=== PATIENT | female | born 1945 | race Caucasian/White ===

== ENCOUNTER 2017-11-27 15:16 | Outpatient (CLI) | payer MEDICARE, OTHER | END 2017-11-27 15:17 | disposition home or self-care (01) | LOC: BICRAD 15:16 | PROVIDERS: ATTEND Specialist | DX: R05 Cough (principal) | CPT/HCPCS: 71046 ==

== ENCOUNTER 2018-09-10 17:05 | Inpatient (IN) | payer MEDICARE, OTHER ==
[~2018-09-10 17:05] MED LIST: ISOVUE-370 76%-LOCM 1 ML ONE
[2018-09-10 18:02] LABS: #Basophils 0.1 thou/uL (0.0-0.2); #Eosinphils 0.2 thou/uL (0.0-0.7); #Lymphocytes 1.3 thou/uL (1.20-3.40); #Monocytes 0.6 thou/uL (0.11-0.59); #Neutrophils 4.7 thou/uL (1.40-6.50); %Basophils 0.7 % (0.0-1.0); %Eosinophils 3.2 % (0.0-10.0); %Lymphocytes 19.4 % (21.0-51.0); %Monocytes 8.3 % (0.0-10.0); %Neutrophils 68.4 % (42.0-75.0); Hemoglobin 14.8 g/dL (12.0-16.0); Mean Corpuscular Hemoglobin 33.4 pg (27.0-31.0); Mean Platelet Volume 9.3 fL (7.4-10.4); Platelet Count 209 thou/uL (130-400); RBC Distribution Width 13.9 % (11.5-14.5); Red Blood Cell (RBC) Count 4.44 mill/uL (4.20-5.40); White Blood Cell (WBC) Count 6.9 thou/uL (4.8-10.8)
[2018-09-10 18:23] LABS: Glucose 103 mg/dL (83-110)
[2018-09-10 18:24] LABS: ALT (SGPT) 8 U/L (8-55); AST (SGOT) 17 U/L (5-34); Albumin 3.5 g/dL (3.4-4.8); Alkaline Phosphatase 109 U/L (40-150); Anion Gap 13 mmol/L (10-20); BUN (Urea Nitrogen) 8 mg/dL (9.8-20.1); Bilirubin, Total 0.9 mg/dL (0.2-1.2); Calc. Creatinine Clearance 0 mL/min (70-130); Calcium 9.7 mg/dL (7.8-10.44); Carbon Dioxide 21 mmol/L (23-31); Chloride 105 mmol/L (98-107); Estimated GFR-MDRD 68; Globulin 4.4 g/dL (2.4-3.5); Potassium 4.3 mmol/L (3.5-5.1); Protein, Total 7.9 g/dL (6.0-8.3); Sodium 135 mmol/L (136-145)
[2018-09-10 18:45] LABS: INR-International Normal Ratio 1.2; PTT 40.1 SEC (22.9-36.1); Prothrombin Time 15.3 SEC (12.0-14.7)
[2018-09-10 19:11] LABS: Bilirubin Small (Negative); Blood, Urine Negative (Negative); Clarity CLEAR (Clear); Glucose, Urine (Dipstick) Negative (Negative); Leukocyte Small (Negative); Nitrite Negative (Negative); Protein, Urine (Dipstick) Negative (Neg-Trace); pH, Urine 6.5 (5.0-9.0)
[2018-09-10 19:12] LABS: Bacteria/HPF None Seen HPF (None Seen); Hyaline Casts/LPF 0-3 HYALINE CAST LPF (0-3 Hyaline); Pathc Cast-AUWi Flag 0.14 (0-2.49)
[2018-09-10 19:20] LABS: RBC/HPF 0-3 HPF (0-3)
[2018-09-10 19:46] LABS: Albumin 3.3 g/dL (3.4-4.8)
[2018-09-10 19:49] LABS: Protein, Total 7.3 g/dL (6.0-8.3)
[2018-09-10 19:50] LABS: Bilirubin, Total 0.9 mg/dL (0.2-1.2)
[2018-09-10 19:51] LABS: Alkaline Phosphatase 103 U/L (40-150)
--- NOTE | 2018-09-10 19:51 | RAD ---
PORTABLE UPRIGHT FRONTAL CHEST RADIOGRAPH: Date: 09-10-18 Comparison: 11-27-17 History: Swelling. FINDINGS: There is stable atherosclerotic calcification of the aortic arch. No pneumothorax or pleural fluid is seen and there is no focal consolidation or alveolar edema. IMPRESSION: No acute findings. POS: [facility]
[2018-09-10 19:53] LABS: AST (SGOT) 15 U/L (5-34)
[2018-09-10 19:54] LABS: ALT (SGPT) Less than 7 U/L (8-55); Bilirubin, Direct 0.5 mg/dL (0.1-0.3)
--- NOTE | 2018-09-10 20:42 | CT ---
CT OF ABDOMEN AND PELVIS 09/10/18 COMPARISON: None. HISTORY: Abdominal distention with pain, nausea, and vomiting. TECHNIQUE: Axial CT imaging at 5 mm intervals from lung bases through pubic symphysis with IV contrast. Coronal reformatted imaging obtained. FINDINGS: The imaged lung bases appear unremarkable. No free intraperitoneal air. There is prominent ascites throughout the abdomen/pelvis, most prominent within the lower pelvis. The hepatic parenchyma is heterogeneous with a peripheral irregular contour, evidence of cirrhosis. The spleen is enlarged measuring 15.8 cm in craniocaudal dimension. There are small varices in the paraesophageal region as well as in the gastrohepatic ligament region and the region of the splenic hilum. There are gallstones seen in the expected location of the gallbl adder neck. There is a subtle low density lesion within the midline pancreatic body on image 34 measuring approxi mately 1.4 cm in transverse dimension, too small to characterize. Right adrenal gland appears unremarkable. Two nonspecific adrenal nodules are present on the left, la rger measuring 1.4 cm. Linear vascular calcification noted in right renal hilum. Similar findings seen within left renal hil um. No acute renal abnormality. Limited assessment of the bowel demonstrates wall thickening of the cecum and ascending colon which c ould be on the basis of hepatic congestion or less likely colitis. A probable lipoma noted in the reg ion of the duodenum on image 49 measuring 2.6 cm. There is scattered atherosclerotic calcification of the abdominal aorta and its branches. No pelvic lymphadenopathy. Multiple mildly enlarged retroperitoneal nodes are seen in the left periao rtic region. Review of the osseous structures demonstrates multilevel lower lumbar spine degenerative change with vacuum disc formation, disc space narrowing and osteophytosis. IMPRESSION: 1. Cirrhotic configuration of the liver with splenomegaly, ascites, and upper abdominal varices, evidence of portal hypertension. 2. Low density lesion in the pancreatic body which may represent a cystic lesion, a pancreatic n eoplasm or an abnormality associated with the pancreatic duct. 3. Adrenal nodules on the left, incompletely assessed on this exam. 4. Atherosclerotic disease. 5. Perhaps an abdominal MRI with and without contrast would be beneficial to evaluate the liver, the pancreatic lesion, and the left adrenal nodules. Alternatively, short term followup imaging of t he abdomen with and contrast using a hepatic mass protocol is advised in 3-6 months. 6. Wall thickening of ascending colon and cecum as detailed above. 7. Cholelithiasis. Code T POS: [facility]
[2018-09-11] MEDS ORDERED: Ondansetron ODT 4 MG TAB SL PRN (00:05)
[2018-09-11] MEDS ORDERED: Ondansetron PF 4 MG/2 ML Vial IVP PRN (00:05)
[2018-09-11] MEDS ORDERED: Ondansetron PF 4 MG/2 ML Vial SLOW IVP PRN (08:15)
[2018-09-11] MEDS ORDERED: Lorazepam 2 MG/ML VIAL SLOW IVP PRN (08:24)
[2018-09-11] MEDS: Sodium Chloride 0.45% 1,000 ML IV SCH ×2 (08:30→16:36)
[2018-09-11] MEDS ORDERED: Prevnar 13-Val Conj/PF 0.5 ML SYRINGE IM ONE (09:00)
[2018-09-11] MEDS: SODIUM CHLORIDE IV SCH ×2 (09:18→16:37)
[2018-09-11] MEDS: MULTIVITAMINS IV SCH ×2 (09:18→16:37)
[2018-09-11] MEDS: Multivit, Therapeutic 1 TAB PO SCH (09:19)
[2018-09-11] MEDS: Pantoprazole 40 MG VIAL IVP SCH ×2 (09:19→20:32)
[2018-09-11] MEDS: Folic Acid 1 MG TAB PO SCH (09:19)
[2018-09-11] MEDS: Thiamine HCl 200 MG/2 ML VIAL IM SCH (10:42)
[2018-09-11] MEDS ORDERED: Sodium Bicarbonate 2.5 MEQ/5 ML VIAL ONE (11:12)
[2018-09-11] MEDS: Lorazepam 2 MG/ML VIAL SLOW IVP SCH ×2 (12:32→17:28)
[2018-09-11 13:54] LABS: BF Color Yellow; Body Fluid Source Ascites Body Fluid; Clarity Hazy (Clear); Tube # EDTA; WBC/NonHematic-Auto 692 /cumm
[2018-09-11 13:55] LABS: BF RBC Count - Manual 539 /cumm
[2018-09-11 14:22] LABS: BF Segmented Neutrophils 28 %; Cell Count Non Hematic 55 %; Eosinophils 1 %; Lymphocytes 15 %
--- NOTE | 2018-09-11 14:54 | ULT ---
ULTRASOUND GUIDED PARACENTESIS: INDICATIONS: Symptomatic ascites. TECHNIQUE: A pre-procedure ultrasound was performed. Informed consent was obtained. The site overlying the rig ht lower quadrant was marked. The site was prepped and draped in the usual sterile fashion. Buffere d 1% Lidocaine was administered to the overlying subcutaneous tissues. Under ultrasound guidance, a 5 [employer] catheter was guided down into the largest collection in the right lower quadrant. Ther e was removal of 5400 mL of normal appearing peritoneal fluid. The patient tolerated the procedure w ithout difficulty. Portions of the sampled fluid were sent to pathology for analysis. IMPRESSION: Successful ultrasound guided paracentesis with removal of 5400 mL of normal appearing peritoneal flui d. POS: [facility]
[2018-09-11] MEDS ORDERED: Levothyroxine 175 MCG TAB PO SCH (16:45)
--- NOTE | 2018-09-11 16:48 | HP ---
CHIEF COMPLAINT ON OBSERVATION: New-onset ascites with GI bleed and pancreatic lesion. HISTORY OF PRESENT ILLNESS: The patient is a 73-year-old female, who has had increasing abdominal girth and discomfort particularly over the last 2 to 3 weeks, such that she was prompted to come in the emergency room. There, CAT scan of the abdomen was performed, which revealed lot of ascites, enlarged spleen, psoriatic liver, evidence of portal hypertension. While there, she was examined and found to have a GI bleed. She also had noted black tarry stools over the last few days, that also prompted her to come to the ER. She denies nausea, vomiting, diarrhea, or fever. PAST MEDICAL HISTORY: Significant for many years of alcohol abuse in the form of 16 ounces of wine on a daily basis. She has hypothyroidism and vitamin D deficiency. There has been evidence of early mental confusion without any formal diagnosis to this point. She is known to have borderline diabetes in the past as well. PAST SURGICAL HISTORY: Include; section, where she was noted to a have hepatic hemangioma in the past, and tonsillectomy. SOCIAL HISTORY: Long history of wine consumption on daily basis approximately 16 ounces. Continues to smoke a pack a day and has for 30 years. 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 ALLERGIES: TO CODEINE AND SULFA. MEDICATIONS: Her current medications include; 1. Levothyroxine 175 mcg p.o. daily. 2. Ferrous sulfate 200 mg daily. 3. Vitamin D3 of 400 International Units daily. REVIEW OF SYSTEMS: GENERAL: On admission are negative for chills, fever, or malaise, HEENT: Negative for lesions over the ears, nose, or throat with discharge. CARDIOVASCULAR: Negative for palpitations or chest pain. RESPIRATORY: Negative for cough, dyspnea. GI: Significant for abdominal girth increase with discomfort. Negative nausea, vomiting, or diarrhea. She had has had some black tarry stools noted. : Negative blood, that she has seen in her urine, but does admit to the black tarry stools recently. MUSCULOSKELETAL: Denies any pain in major joints or muscle groups. SKIN: No new rashes or lesions. NEUROLOGIC: Denies any headaches, mental confusion, paralysis, or paresthesias. HEMOLYMPHATIC: Denies any abdominal blood clotting, bruising, or swelling aside from her abdomen. ALLERGY AND IMMUNOLOGIC: No new history of symptomatic sneezing, itchy or watery eyes. PHYSICAL EXAMINATION: At the time of admission; VITAL SIGNS: While in the ER, she was reportedly having history of low blood pressure. She has been at 169/82, down to 147/77 since admission. Pulse rate is 70s and O2 saturation 96% on room air. GENERAL: This is an elderly female, alert, orient, and cooperative. HEENT: Normocephalic and atraumatic. Pupils are equal, round, and reactive to light with arcus senilis bilaterally. TMs, nares, pharynx are clear. NECK: Supple. Trachea midline. CHEST: With diminished breath sounds throughout, but no active wheezing or rhonchi. BREASTS: Deferred. HEART: Regular rate and rhythm without murmur. ABDOMEN: Distended, tense, and tender generally. Unable to appreciate specific organ enlargement with the past CT. The spleen is noted to be enlarged. : Deferred. EXTREMITIES: Without clubbing, cyanosis, or edema. SKIN: With diffuse seborrheic keratosis. NEUROLOGIC: Cranial nerves are intact. Gait and cerebellar function intact. Sensory exam is intact. Mental status is at baseline, nonfocal at this time. LABORATORY DATA: The lab work on admission, positive for CT, which reveals evidence of portal hypertension, enlarged spleen, and possible pancreatic mass. The chest x-ray shows no acute findings. EKG significant for first-degree AV block, otherwise remarkable. ASSESSMENT: At the time of admission is; 1. New-onset ascites. 2. Portal hypertension. 3. Splenomegaly. 4. History of alcoholism. 5. Chronic obstructive pulmonary disease - continues to smoke. 6. Hypothyroidism. 7. Gastrointestinal bleed. PLAN: The patient has been kept n.p.o. from admission and GI has been consulted, who began her on some Protonix IV and tried to prevent DTs with prophylactic Ativan and vitamins. When she is able to take p.o., then we will add the folate. Serially reevaluate her. Job ID: [id number]
--- NOTE | 2018-09-11 18:15 | CON ---
DATE OF CONSULTATION: HISTORY OF PRESENT ILLNESS: The patient is a 73-year-old female, who over the last several weeks has been noting increasing abdominal distention. She was seen by my partner Dr. Patricio in the outpatient setting and was scheduled for an upper and lower endoscopy and a CT scan. However, before she could have those done, her abdominal distention worsened and she sought treatment in the emergency room. She has had no nausea or vomiting. No weight loss. No prior history of liver disease. PAST MEDICAL HISTORY: Significant for hypothyroidism. PAST SURGICAL HISTORY: Includes; 1. Knee surgery. 2. . 3. Tonsillectomy. ALLERGIES: CODEINE AND SULFA. MEDICATIONS: Home medications include; 1. Levothyroxine 175 mcg one p.o. daily. 2. Iron 200 mg one p.o. daily. 3. Vitamin D3 400 units daily. SOCIAL HISTORY: She drinks 16 ounces of wine everyday for many years and smokes one pack per day. FAMILY HISTORY: Negative for liver disease or other GI diseases. REVIEW OF SYSTEMS: CONSTITUTIONAL: No fevers or chills. No weight loss. HEENT: Eyes, no blurred vision or double vision. ENT, no sore throat or earaches. CARDIOVASCULAR: No chest pain or palpitations. PULMONARY: No shortness of breath, cough, or wheezing. SKIN: No rashes. NEUROLOGIC: No seizure or numbness. PHYSICAL EXAMINATION: GENERAL: Shows a well-developed well-nourished white female, in no acute distress. VITAL SIGNS: Temperature is 98.1, pulse is 72, respiratory rate 18, and blood pressure 143/76. HEENT: Unremarkable. NECK: Supple. CHEST: Clear. CARDIOVASCULAR: Regular rate and rhythm. ABDOMEN: Distended, protuberant with a positive fluid wave. No hepatosplenomegaly is appreciable. RECTAL: Deferred. EXTREMITIES: Showed minimal edema. LABORATORY DATA: Shows essentially normal CBC. PT is 15.3 with an INR 1.2. Chemistries showed sodium 135, CO2 of 21, BUN 8, , and lipase 42. Urinalysis showed trace ketones, small bilirubin, small leukocyte estrace, and 4 to 6 wbc's. DIAGNOSTIC DATA: Chest x-ray shows no acute findings. CT abdomen and pelvis with contrast shows a cirrhotic liver with splenomegaly, ascites, upper abdominal varices with evidence of portal hypertension. There is subtle midline pancreatic body cyst, adrenal nodules, wall thickening of the ascending colon and cecum and cholelithiasis. ASSESSMENT: 1. Symptomatic ascites. 2. Cirrhosis. 3. Melena. 4. Pancreatic lesion. 5. Abnormal CT of the ascending colon and cecum. 6. Cholelithiasis - asymptomatic. 7. History of alcohol abuse. 8. Hypothyroidism. RECOMMENDATIONS: 1. Paracentesis with fluid studies including albumin, cytology. 2. Upper and lower endoscopy once paracentesis has been performed. 3. Possible outpatient endoscopic ultrasound, concerning pancreatic lesion. Job ID: [id number]
[2018-09-12] MEDS: Sodium Chloride 0.45% 1,000 ML IV SCH (00:30)
[2018-09-12] MEDS: MULTIVITAMINS IV SCH (00:40)
[2018-09-12] MEDS: SODIUM CHLORIDE IV SCH (00:40)
[2018-09-12] MEDS: Lorazepam 2 MG/ML VIAL SLOW IVP SCH ×4 (05:36→18:04)
[2018-09-12] MEDS: Levothyroxine 175 MCG TAB PO SCH (05:36)
[2018-09-12] MEDS: Pantoprazole 40 MG VIAL IVP SCH ×2 (08:17→20:46)
[2018-09-12] MEDS: Multivit, Therapeutic 1 TAB PO SCH (08:17)
[2018-09-12] MEDS: Thiamine HCl 200 MG/2 ML VIAL IM SCH (08:17)
[2018-09-12] MEDS: Folic Acid 1 MG TAB PO SCH (08:17)
[2018-09-12] MEDS ORDERED: Spironolactone 100 MG TAB PO SCH (11:00)
[2018-09-12 11:48] LABS: Anion Gap 11 mmol/L (10-20); BUN (Urea Nitrogen) 8 mg/dL (9.8-20.1); Calc. Creatinine Clearance 102 mL/min (70-130); Calcium 8.8 mg/dL (7.8-10.44); Carbon Dioxide 21 mmol/L (23-31); Chloride 106 mmol/L (98-107); Estimated GFR-MDRD 74; Glucose 128 mg/dL (83-110); Potassium 3.9 mmol/L (3.5-5.1); Sodium 134 mmol/L (136-145)
--- NOTE | 2018-09-12 12:43 | PRG ---
DATE OF SERVICE: 09/12/2018 SUBJECTIVE: The patient is feeling less full, although she feels like her fluid is returning. OBJECTIVE: VITAL SIGNS: Temperature 98.0, pulse 72, respiratory rate 20, and blood pressure 108/73. HEENT: Unchanged. CHEST: Clear. CARDIOVASCULAR: Regular rate and rhythm. ABDOMEN: Protuberant, less tense than yesterday. Bowel sounds are present. Nontender. EXTREMITIES: Normal. LABORATORY DATA: Chemistries show an alpha-fetoprotein of 3.6, magnesium 1.6. Cell count with differential showed fluid wbc of 692 with 539 rbc's. Her percent neutrophils 28%, 15% lymphs. Cytology is pending. Ascites albumin level is pending. ASSESSMENT: 1. Symptomatic ascites - improved after paracentesis. 2. Cirrhosis. 3. Melena. 4. Pancreatic lesion. 5. Abnormal CT of the ascending colon and cecum. 6. Cholelithiasis. 7. History of alcohol abuse. 8. Hypothyroidism. RECOMMENDATIONS: 1. At this time, even though her PMN count was somewhat high, it was not greater than 250. Therefore, no treatment for SBP. 2. Obtain ascites albumin level. 3. Upper and lower endoscopy tomorrow. 4. Outpatient EUS for pancreatic lesion. Job ID: [id number]
[2018-09-12] MEDS ORDERED: Furosemide 40 MG TAB PO SCH (16:30)
[2018-09-12] MEDS ORDERED: ALPRAZolam 0.25 MG TAB PO PRN (16:31)
[2018-09-12] MEDS ORDERED: GoLYTELY 4,000 ml Bottle PO SCH (18:00)
[2018-09-13] MEDS: Lorazepam 2 MG/ML VIAL SLOW IVP SCH ×5 (00:13→23:57)
[2018-09-13 05:50] LABS: Anion Gap 12 mmol/L (10-20); BUN (Urea Nitrogen) 8 mg/dL (9.8-20.1); Calc. Creatinine Clearance 88 mL/min (70-130); Calcium 8.8 mg/dL (7.8-10.44); Carbon Dioxide 25 mmol/L (23-31); Chloride 101 mmol/L (98-107); Estimated GFR-MDRD 62; Glucose 120 mg/dL (83-110); Potassium 4.2 mmol/L (3.5-5.1); Sodium 134 mmol/L (136-145)
[2018-09-13] MEDS: Levothyroxine 175 MCG TAB PO SCH (05:57)
[2018-09-13] MEDS ORDERED: CEFAZOLIN 2 GM/50 ML BAG ONE (08:56)
[2018-09-13] MEDS ORDERED: Midazolam HCl 2 mg/2 ml Vial ONE (09:04)
[2018-09-13] MEDS ORDERED: Promethazine HCl 25 MG/ML VIAL SLOW IVP PRN (09:39)
[2018-09-13] MEDS ORDERED: Ondansetron HCl/PF 4 MG/2 ML Vial IVP PRN (09:39)
[2018-09-13] MEDS ORDERED: Promethazine HCl 25 MG/ML VIAL IM PRN (09:39)
[2018-09-13] MEDS ORDERED: PROPOFOL 200 MG/20 ML VIAL ONE (10:53)
[2018-09-13] MEDS ORDERED: Lidocaine 1% PF 5 ML VIAL ONE (10:53)
[2018-09-13] MEDS: Furosemide 40 MG TAB PO SCH (11:03)
[2018-09-13] MEDS: Folic Acid 1 MG TAB PO SCH (11:03)
[2018-09-13] MEDS: Thiamine HCl 200 MG/2 ML VIAL IM SCH (11:04)
[2018-09-13] MEDS: Multivit, Therapeutic 1 TAB PO SCH (11:04)
[2018-09-13] MEDS: Pantoprazole 40 MG VIAL IVP SCH ×2 (11:04→20:11)
[2018-09-13] MEDS: cefTRIAXone\\ROCEPHIN 2 GM in Sodium Chloride 0.9% 100 ML IVPB SCH (12:18)
[2018-09-14] MEDS: Lorazepam 2 MG/ML VIAL SLOW IVP SCH ×2 (05:30→11:50)
[2018-09-14] MEDS: Levothyroxine 175 MCG TAB PO SCH (05:30)
[2018-09-14 05:38] LABS: #Eosinphils 0.2 thou/uL (0.0-0.7); #Lymphocytes 1.7 thou/uL (1.20-3.40); #Monocytes 0.9 thou/uL (0.11-0.59); #Neutrophils 5.9 thou/uL (1.40-6.50); %Basophils 0.5 % (0.0-1.0); %Eosinophils 2.8 % (0.0-10.0); %Lymphocytes 19.5 % (21.0-51.0); %Monocytes 10.4 % (0.0-10.0); %Neutrophils 66.9 % (42.0-75.0); Hemoglobin 13.8 g/dL (12.0-16.0); Mean Corpuscular HGB CONC 33.1 g/dL (32.0-36.0); Mean Corpuscular Hemoglobin 32.9 pg (27.0-31.0); Mean Corpuscular Volume 99.4 fL (78.0-98.0); Mean Platelet Volume 8.5 fL (7.4-10.4); Platelet Count 198 thou/uL (130-400); RBC Distribution Width 13.2 % (11.5-14.5); White Blood Cell (WBC) Count 8.8 thou/uL (4.8-10.8)
[2018-09-14 05:50] LABS: Anion Gap 11 mmol/L (10-20); BUN (Urea Nitrogen) 10 mg/dL (9.8-20.1); Calc. Creatinine Clearance 89 mL/min (70-130); Calcium 8.9 mg/dL (7.8-10.44); Carbon Dioxide 24 mmol/L (23-31); Chloride 102 mmol/L (98-107); Estimated GFR-MDRD 62; Glucose 123 mg/dL (83-110); Sodium 133 mmol/L (136-145)
--- NOTE | 2018-09-14 07:59 | OP ---
DATE OF PROCEDURE: 09/13/2018 PREOPERATIVE DIAGNOSES: 1. Melena and hematochezia. 2. Cirrhosis. DESCRIPTION OF PROCEDURE: After informed consent was obtained, the patient was placed in a left lateral decubitus position. Anesthesia was administered per the Anesthesia Department. Forward-viewing endoscope was inserted into the esophagus under direct visualization with ease and passed to the second portion of the duodenum with ease. Second portion of the duodenum and duodenal bulb were normal. Pylorus was normal. The antrum, body, fundus, and cardia were normal except for some diffuse erythema and edema. Biopsies were taken. Retroflexion in the stomach was normal. The esophagus displayed grade 2 esophageal varices without stigmata of recent hemorrhage or red cleve signs. ASSESSMENT: 1. Portal hypertensive gastropathy - status post biopsy. 2. Grade 2 esophageal varices without stigmata of recent hemorrhage or red cleve signs. 3. Otherwise, normal esophagogastroduodenoscopy. RECOMMENDATIONS: 1. Await histopathology. 2. Begin nadolol. 3. Proceed with colonoscopy. DESCRIPTION OF PROCEDURE: After informed consent was obtained, the patient was placed in a left lateral decubitus position. Anesthesia was administered per the Anesthesia Department. Forward-viewing colonoscope was inserted per rectum. After perianal inspection, rectal exam was normal and passed to the hepatic flexure with ease. Hepatic flexure displayed a circumferential mass that was near obstructing. The scope could not be passed beyond the mass. Biopsies were taken from several areas around the mass and the mass was tattooed. The remainder of the transverse was normal, except for 1 polyp that was removed with snare electrocautery. The descending had 3 polyps that were removed with snare electrocautery. A rectal polyp was removed with snare electrocautery. Retroflexion in the rectum was normal. ASSESSMENT: 1. Near obstructing hepatic flexure mass, likely malignant - status post biopsy and tattoo. 2. Multiple colon polyps - status post polypectomy. RECOMMENDATIONS: 1. Await histopathology. 2. CEA. 3. Surgical consult. Job ID: [id number]
[2018-09-14] MEDS: Folic Acid 1 MG TAB PO SCH (08:39)
[2018-09-14] MEDS: Multivit, Therapeutic 1 TAB PO SCH (08:39)
[2018-09-14] MEDS: Furosemide 40 MG TAB PO SCH (08:39)
[2018-09-14] MEDS: Nadolol 40 MG TAB PO SCH ×2 (08:39→08:57)
[2018-09-14] MEDS: Pantoprazole 40 MG VIAL IVP SCH (08:40)
[2018-09-14] MEDS ORDERED: Meropenem 2 GM, Admixture Fee 1 EACH in Sodium Chloride 0.9% 100 ML IVPB SCH (10:45)
[2018-09-14] MEDS ORDERED: Spironolactone 100 MG TAB PO SCH (11:15)
[2018-09-14] MEDS: cefTRIAXone\\ROCEPHIN 2 GM in Sodium Chloride 0.9% 100 ML IVPB SCH (11:47)
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
[2018-09-14 12:06] LABS: HBCM Index 0.37 S/CO (0-0.79); HBSAB Concentration 0.69 mIU/mL; HBSAg Index 0.18 S/CO (0-0.99); Hep A IgM AB Non-Reactive (NonReactive); Hep A IgM S/CO 0.67 S/CO (0-0.79); Hep B Core Total Ab Non-Reactive (NonReactive); Hep B Core Total Index 0.14 S/CO (0-0.79); Hep B Surf AB Non-Reactive (NonReactive); Hep B Surf Ag Non-Reactive S/CO (NonReactive); Hep C IgG Ab Non-Reactive (NonReactive); Hep C Index 0.19 S/CO (0-0.79); Hepatitis B Core IgM Abs Non-Reactive (NonReactive)
[2018-09-14 17:23] VITALS: BP 121/79; TEMP 97.1
[2018-09-15] MEDS ORDERED: Spironolactone 100 MG TAB PO SCH (08:00)
[2018-09-15] MEDS ORDERED: Furosemide 40 MG/4 ML VIAL SLOW IVP SCH (09:00)
[2018-09-15] MEDS ORDERED: Lactated Ringer's 1,000 ML IV SCH (10:45)
== END 2018-09-14 18:48 | disposition home or self-care (01) | DRG 375 ==
LOC: ERS 17:05 → T4-B 23:05 → OBSVTOIN 09-13 16:45
PROVIDERS: ADMIT Specialist; ATTEND Specialist
PROC: 0DB68ZX Excision of Stomach, Via Natural or Artificial Opening Endoscopic, Diagnostic (ICD-10-PCS; principal; 2018-09-13)
PROC: 0DBL8ZX Excision of Transverse Colon, Via Natural or Artificial Opening Endoscopic, Diagnostic (ICD-10-PCS; 2018-09-13)
PROC: 0DBM8ZZ Excision of Descending Colon, Via Natural or Artificial Opening Endoscopic (ICD-10-PCS; 2018-09-13)
PROC: 0DBP8ZZ Excision of Rectum, Via Natural or Artificial Opening Endoscopic (ICD-10-PCS; 2018-09-13)
DX: C18.9 Malignant neoplasm of colon, unspecified (principal); I85.00 Esophageal varices without bleeding; K76.6 Portal hypertension; K70.31 Alcoholic cirrhosis of liver with ascites; K80.20 Calculus of gallbladder without cholecystitis without obstruction; K31.89 Other diseases of stomach and duodenum; E03.9 Hypothyroidism, unspecified; F17.210 Nicotine dependence, cigarettes, uncomplicated; F10.10 Alcohol abuse, uncomplicated; J44.9 Chronic obstructive pulmonary disease, unspecified; K63.5 Polyp of colon
CPT/HCPCS: 36415; 49083; 71045; 74177; 80048; 80053; 80074; 81003; 81015; 82042; 82105; 82274; 82378; 83605; 83690; 83735; 83880; 84443; 85025; 85060; 85610; 85730; 86301; 86704; 86706; 86709; 86803; 86850; 86900; 86901; 87340; 88112; 88305; 88312; 89051; 93005; 96360; C9113; J0696; J2001; J2060; J2250; J2405; J2704; J3411; J3475; J7050

== ENCOUNTER 2018-09-23 13:00 | Inpatient (IN) | payer MEDICARE, OTHER ==
[2018-09-23 14:05] VITALS: BMI 33.0
[2018-09-23 16:03] LABS: Hemoglobin A1c 5.4 % (4.0-6.0)
[2018-09-28] MEDS ORDERED: Ketorolac Tromethamine 30 MG/ML VIAL ONE (06:27)
[2018-09-28] MEDS ORDERED: Meropenem 2 GM in Sodium Chloride 0.9% 100 ML IVPB SCH (06:30)
[2018-09-28] MEDS ORDERED: Midazolam HCl 2 mg/2 ml Vial ONE ×2 (07:03→07:16)
[2018-09-28] MEDS ORDERED: Fentanyl 100 MCG/2 ML VIAL ONE ×2 (07:03→07:32)
[2018-09-28] MEDS ORDERED: Phenylephrine HCL 10 MG/ML VIAL ONE (07:32)
[2018-09-28] MEDS ORDERED: Albumin 25% 200 ML ONE (07:38)
[2018-09-28] MEDS ORDERED: Dexamethasone 4 mg/ml Vial ONE (07:44)
[2018-09-28] MEDS ORDERED: HYDROmorphone 2 MG/ML VIAL SLOW IVP PRN (09:16)
[2018-09-28] MEDS ORDERED: PACU-Morphine 4MG/ML VIAL SLOW IVP PRN (09:16)
[2018-09-28] MEDS ORDERED: Promethazine HCl 25 MG/ML VIAL IM PRN (09:16)
[2018-09-28] MEDS ORDERED: Ondansetron HCl/PF 4 MG/2 ML Vial IVP PRN (09:16)
[2018-09-28] MEDS ORDERED: Promethazine HCl 25 MG/ML VIAL SLOW IVP PRN (09:16)
[2018-09-28] MEDS ORDERED: Bupivacaine HCl 0.5%/Epinephrine 1:200,000/PF 30 ml Vial ONE (10:03)
[2018-09-28] MEDS ORDERED: Morphine 2 MG/ML SYRINGE SLOW IVP PRN (10:34)
[2018-09-28] MEDS ORDERED: hydrALAZINE 20 MG/ML VIAL SLOW IVP PRN (10:34)
[2018-09-28] MEDS ORDERED: Morphine 4 MG/ML VIAL SLOW IVP PRN (10:34)
[2018-09-28] MEDS ORDERED: Ondansetron PF 4 MG/2 ML Vial IVP PRN (10:34)
--- NOTE | 2018-09-28 10:50 | OP ---
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 PROCEDURES PERFORMED: Exploratory laparotomy, evacuation of 3.2 L of ascites, right colectomy with primary ileocolic anastomosis, placement of PleurX drainage catheter to facilitate wound healing and to prevent ascites leak. ESTIMATED BLOOD LOSS: Less 100 mL. BLOOD PRODUCTS: Two units of fresh frozen plasma (to minimize crystalloid). ANESTHESIA: General anesthesia, TAP block. FINDINGS: The patient had a large, near obstructive transverse colon cancer involving attached omentum and probably transmural. No extracolonic signs of disease except perhaps some enlarged nodes in the specimen submitted. DESCRIPTION OF PROCEDURE: The patient was taken to the operating room, where under general anesthesia and TAP block, Sabillon catheter was placed at the beginning of the procedure and removed at the end. She had minimal output, less than 100, intraoperative urine output. The abdomen was prepared with ChloraPrep and draped in routine fashion. Incision was made centered about the umbilicus, carried down to the skin and subcutaneous tissue and the midline fascia and abdominal cavity evacuating 3.2 L of straw, but clear ascites. The liver was diffusely cirrhotic and nodular. Large proximal transverse colon cancer identified and it had been tattooed. Careful attention was turned to mobilization of the right colon, hepatic flexure using the LigaSure for hemostasis. I then mobilized the omentum off the proximal transverse colon, hepatic flexure using the LigaSure. I did leave attached omentum to the tumor mass and the proximal transverse colon divided with a LigaSure. Mesentry serially divided with the LigaSure and in between clamps using 2-0 silk ties for hemostasis in the vascular bundles. As the right colon was mobilized, the duodenum identified, kept free of harm. Terminal ileum was mobilized. At this point, the ileotransverse colic anastomosis was created with 3 fires of CAYLA 75 stapler creating the anastomosis, dividing the specimen, submitted to Pathology. Good hemostasis noted. The anastomosis was reinforced with Lembert suture with 3-0 silk and the mesenteric defect was closed with 2-0 [id number] silk. Good hemostasis noted. Abdominal cavity irrigated with a liter of saline and irrigant evacuated. PleurX catheter was placed through a stab incision, right abdomen, placed into the pelvis, secured with 3-0 nylon suture. The omentum was then placed between the viscera and the abdominal wall and sewed circumferentially to the peritoneum with continuous suture of 3-0 Monocryl. At this point, the fascia approximated with continuous suture #1 PDS. Skin and subcutaneous tissues were irrigated. All gloves and gowns have been changed after colon resection, anastomosis. Subcutaneous tissues were thoroughly irrigated. Hemostasis was obtained. Subcutaneous tissues were approximated with 2-0 Monocryl, skin with latesha and Prevena wound VAC applied. The dressings were applied to the PleurX catheter. The patient tolerated the procedure well. Job ID: [id number]
[2018-09-28 11:22] LABS: #Lymphocytes 0.5 thou/uL (1.20-3.40); #Monocytes 0.3 thou/uL (0.11-0.59); #Neutrophils 10.2 thou/uL (1.40-6.50); %Basophils 0.1 % (0.0-1.0); %Eosinophils 0.3 % (0.0-10.0); %Lymphocytes 4.1 % (21.0-51.0); %Monocytes 2.3 % (0.0-10.0); %Neutrophils 93.2 % (42.0-75.0); Hemoglobin 12.9 g/dL (12.0-16.0); Mean Corpuscular HGB CONC 32.6 g/dL (32.0-36.0); Mean Corpuscular Hemoglobin 31.9 pg (27.0-31.0); Mean Platelet Volume 8.2 fL (7.4-10.4); Platelet Count 203 thou/uL (130-400); RBC Distribution Width 12.5 % (11.5-14.5); Red Blood Cell (RBC) Count 4.05 mill/uL (4.20-5.40)
[2018-09-28 11:53] LABS: Anion Gap 18 mmol/L (10-20); BUN (Urea Nitrogen) 17 mg/dL (9.8-20.1); Calc. Creatinine Clearance 47 mL/min (70-130); Calcium 9.3 mg/dL (7.8-10.44); Carbon Dioxide 17 mmol/L (23-31); Chloride 99 mmol/L (98-107); Estimated GFR-MDRD 32; Glucose 223 mg/dL (83-110); Potassium 4.7 mmol/L (3.5-5.1); Sodium 129 mmol/L (136-145)
[2018-09-28] MEDS ORDERED: Albumin 25% 25 GM/100 ML BOT IVPB SCH (12:00)
[2018-09-28] MEDS ORDERED: Prevnar 13-Val Conj/PF 0.5 ML SYRINGE IM ONE (13:00)
[2018-09-28] MEDS: Ketorolac Tromethamine 30 MG/ML VIAL IVP SCH ×2 (13:22→17:41)
[2018-09-28] MEDS: Acetaminophen 1,000 MG in Premix Bag 1 BAG IVPB SCH ×2 (13:22→17:40)
[2018-09-28] MEDS: Sodium Chloride 0.9% 1,000 ML IV SCH (15:28)
[2018-09-28] MEDS: Albumin 25% 25 GM/100 ML BOT IVPB SCH ×2 (16:10→21:56)
[2018-09-28] MEDS ORDERED: Dextrose 5% in Water 1,000 ML IV PRN (18:56)
[2018-09-28] MEDS ORDERED: Dextrose 50% Abboject 50 ML SYRINGE IVP PRN (18:56)
[2018-09-28] MEDS: Insulin Regular 300 UNITS/3 ML VIAL SC PRN ×2 (19:10→22:06)
[2018-09-28] MEDS ORDERED: Lidocaine 1% PF 5 ML VIAL ONE (20:48)
[2018-09-28] MEDS ORDERED: ePHEDrine/0.9% NaCl/PF SYRINGE 50 mg/10 ml ONE (20:48)
[2018-09-28] MEDS ORDERED: Ondansetron PF 4 MG/2 ML Vial ONE (20:48)
[2018-09-28] MEDS ORDERED: Dexamethasone 20 MG/5 ML VIAL ONE (20:48)
[2018-09-28] MEDS ORDERED: Glycopyrrolate 0.2 MG/ML 5 ML SYRINGE ONE (20:48)
[2018-09-28] MEDS ORDERED: PROPOFOL 200 MG/20 ML VIAL ONE (20:48)
[2018-09-28] MEDS ORDERED: PHENYLEPHRINE-NS 100 MCG/ML 10 ML SYRINGE ONE (20:48)
[2018-09-28] MEDS: Enoxaparin Sodium 40 MG/0.4 ML SYRINGE SC SCH (21:46)
[2018-09-28] MEDS: Famotidine 20 MG TAB PO SCH (21:49)
[2018-09-28] MEDS: Famotidine/PF 20 mg/2ml Vial SLOW IVP SCH (21:55)
[2018-09-29] MEDS: Ketorolac Tromethamine 30 MG/ML VIAL IVP SCH ×4 (00:21→18:10)
[2018-09-29] MEDS: Acetaminophen 1,000 MG in Premix Bag 1 BAG IVPB SCH ×2 (00:21→06:12)
[2018-09-29] MEDS: Sodium Chloride 0.9% 1,000 ML IV SCH (03:05)
[2018-09-29] MEDS: Albumin 25% 25 GM/100 ML BOT IVPB SCH ×3 (04:39→15:10)
[2018-09-29] MEDS: Levothyroxine 175 MCG TAB PO SCH (06:16)
[2018-09-29 07:58] LABS: #Lymphocytes 0.8 thou/uL (1.20-3.40); #Monocytes 0.4 thou/uL (0.11-0.59); #Neutrophils 10.3 thou/uL (1.40-6.50); %Lymphocytes 6.7 % (21.0-51.0); %Monocytes 3.7 % (0.0-10.0); %Neutrophils 89.5 % (42.0-75.0); Mean Corpuscular HGB CONC 32.8 g/dL (32.0-36.0); Mean Corpuscular Volume 97.6 fL (78.0-98.0); Mean Platelet Volume 8.4 fL (7.4-10.4); Platelet Count 192 thou/uL (130-400); RBC Distribution Width 12.3 % (11.5-14.5); Red Blood Cell (RBC) Count 3.76 mill/uL (4.20-5.40); White Blood Cell (WBC) Count 11.5 thou/uL (4.8-10.8)
[2018-09-29 08:06] LABS: INR-International Normal Ratio 1.5; Prothrombin Time 17.7 SEC (12.0-14.7)
[2018-09-29] MEDS: Famotidine 20 MG TAB PO SCH (08:56)
[2018-09-29 08:57] LABS: ALT (SGPT) 10 U/L (8-55); AST (SGOT) 17 U/L (5-34); Albumin 4.2 g/dL (3.4-4.8); Alkaline Phosphatase 91 U/L (40-150); Anion Gap 17 mmol/L (10-20); BUN (Urea Nitrogen) 10 mg/dL (9.8-20.1); Bilirubin, Total 0.8 mg/dL (0.2-1.2); Calc. Creatinine Clearance 82 mL/min (70-130); Calcium 9.5 mg/dL (7.8-10.44); Carbon Dioxide 17 mmol/L (23-31); Chloride 101 mmol/L (98-107); Estimated GFR-MDRD 61; Globulin 3.7 g/dL (2.4-3.5); Glucose 131 mg/dL (83-110); Potassium 4.7 mmol/L (3.5-5.1); Protein, Total 7.9 g/dL (6.0-8.3); Sodium 130 mmol/L (136-145)
[2018-09-29] MEDS: Famotidine/PF 20 mg/2ml Vial SLOW IVP SCH (08:57)
[2018-09-29] MEDS: Spironolactone 100 MG TAB PO SCH (09:52)
[2018-09-29] MEDS: Insulin Regular 300 UNITS/3 ML VIAL SC PRN ×2 (12:08→21:26)
[2018-09-29] MEDS ORDERED: traMADol HCl 50 MG TAB PO PRN ×2 (17:33)
--- NOTE | 2018-09-29 19:09 | PRG ---
DATE OF SERVICE: 09/29/2018 SUBJECTIVE: Ms. Iverson is doing well today. She is tolerating clear liquids. We will advance her to full liquids today and more regular diet diabetic, low-sodium tomorrow. We will ask Nursing to drain her PD catheter tomorrow and check volume retrieved. We will ask case mgr to arrange home health nursing for drainage of her PD catheter 3 times a week and recall me with drainage output. Incisional VAC is doing well with minimal leakage. OBJECTIVE: LUNGS: Clear to auscultation. CARDIAC: Regular rhythm without murmur or gallop. ABDOMEN: Soft, distended, and protuberant. Positive fluid wave. Positive bowel sounds. No bowel movement. No flatus. EXTREMITIES: Unremarkable. LABORATORY DATA: White count 11, hemoglobin 12. Sodium 130, potassium 4.7, creatinine 0.91, GFR 61. Accu-Cheks 196 to 324 with aggressive sliding scale insulin. ASSESSMENT AND PLAN: 1. The patient reports herself as prediabetic borderline, but her Accu-Cheks were 400 and aggressive sliding scale initiated. This is to control her Accu-Cheks as well. Hemoglobin A1c preoperatively was normal. 2. Cirrhosis, ascites. Restart her Lasix. Continue spironolactone. Consult Dietary for education of low-sodium diet, and somewhat fluid restriction to minimize ascites reaccumulation. I asked Nursing to begin draining ascites from peritoneal catheter tomorrow. This is a temporary catheter and expected to be removed in the future. 3. Tobacco abuse history. 4. Obesity. 5. Right colon cancer, postop day #1, tolerating her diet. Awaiting GI function. Advance her diet. Job ID: [id number]
[2018-09-29] MEDS: Enoxaparin Sodium 40 MG/0.4 ML SYRINGE SC SCH (21:25)
[2018-09-30] MEDS: Ketorolac Tromethamine 30 MG/ML VIAL IVP SCH ×3 (00:33→11:11)
[2018-09-30] MEDS: Acetaminophen 500 MG TAB PO PRN ×2 (00:36→23:36)
[2018-09-30] MEDS: Levothyroxine 175 MCG TAB PO SCH (05:42)
[2018-09-30] MEDS: Insulin Regular 300 UNITS/3 ML VIAL SC PRN (06:36)
[2018-09-30] MEDS: Furosemide 40 MG TAB PO SCH (08:42)
[2018-09-30] MEDS: Spironolactone 100 MG TAB PO SCH (08:42)
[2018-09-30] MEDS ORDERED: Ibuprofen 600 MG TAB PO PRN (11:26)
--- NOTE | 2018-09-30 12:21 | PRG ---
DATE OF SERVICE: 09/30/2018 SUBJECTIVE: Marlon Iverson is doing well today. She is tolerating a regular diet, low sodium. She has been counseled dietary as far as low-sodium fluid-restricted diet. She is on Lasix and spironolactone. OBJECTIVE: VITAL SIGNS: Temperature 97.4, heart rate 64, and blood pressure 138/82. GENERAL: She has not had any nausea or vomiting. She has passed flatus, not yet had a bowel movement. LUNGS: Clear to auscultation. CARDIAC: Regular rhythm without murmur or gallop. ABDOMEN: Protuberant, soft, and nontender. Incisional VAC on her wound. Peritoneal drainage catheter in place. ASSESSMENT AND PLAN: 1. Cirrhosis and ascites secondary to alcoholism. We will ask our nurse to drain this catheter. We will arrange outpatient home health nursing to drain the catheter periodically. This can be done 2 to 3 times a week. So far, there is no evidence of ascites, drainage from her wound. 2. Right colon cancer. Pathology is pending. She will need Oncology consultation as outpatient. I expect at least T3-T4 disease as it seemed to be involving the omentum, which was resected en bloc with it. Lymph node status is pending. The patient should be ready for discharge later today or tomorrow. She has minimal pain. Job ID: [id number]
--- NOTE | 2018-09-30 15:53 | ULT ---
LIMITED ABDOMINAL ULTRASOUND: History: 73-year-old female with history of ascites. Patient has had a drain tube inserted in the right lower quadrant to drain the ascites per patient. FINDINGS: Examination of all four quadrants demonstrates only a small amount of ascites in the right upper quad rant in the hepatic region. The drainage catheter itself was not definitively demonstrated with ultra sound. IMPRESSION: Only a very small amount of ascites in the right upper quadrant. POS: [facility]
[2018-09-30] MEDS: Enoxaparin Sodium 40 MG/0.4 ML SYRINGE SC SCH (20:37)
[2018-10-01] MEDS: Levothyroxine 175 MCG TAB PO SCH (05:29)
[2018-10-01] MEDS: Acetaminophen 500 MG TAB PO PRN (05:29)
[2018-10-01] MEDS: Furosemide 40 MG TAB PO SCH (08:32)
[2018-10-01] MEDS: Spironolactone 100 MG TAB PO SCH (08:32)
--- NOTE | 2018-10-01 10:04 | PRG ---
DATE OF SERVICE: 10/01/2018 SUBJECTIVE: Ms. Iverson is doing well. She is tolerating a regular diet. She has had a bowel movement. She is passing gas. OBJECTIVE: VITAL SIGNS: Temperature 97.7, pulse 69, blood pressure 120/69. LUNGS: Clear to auscultation. CARDIAC: Regular rate and rhythm without murmur or gallop. ABDOMEN: Protuberant, soft, mildly tympanitic plus bowel sounds. EXTREMITIES: Unremarkable. LABORATORY DATA: None. PLAN: Pathology reveals [id number] colon cancer. The patient is doing well. We will plan discharge home with Ultram p.r.n. pain. She will resume her home medication. She will be on a low-sodium diabetic diet. Dr. Jony Aggarwal has seen her today and the patient refused diabetic medications. She is instructed on a diabetic low-sodium diet per Dietary. She has a followup appointment with me next week and Dr. Krishnamurthy, Oncology next week. Resume her home medications. Of note, Ms. Iverson postoperatively called my office with vice president medical affairs in my office demanded that they call me to advance her diet. I saw her few hours later and placed her on full liquids. Yesterday, we hooked her peritoneal ascites drainage catheter up and there was no drainage. She complained a lot of pain when they hooked it to the Vacutainer. She refused to cooperate and refused to allow the nurses to disconnect her. I then obtained an ultrasound of her abdomen, and there was no significant ascites. The patient was calling complaining. She asked the nurses who my associates were. This was discussed with the patient today and plan is to not drain her catheter routinely as it has caused her pain. Anticipate, I would take this catheter out in the office under local anesthesia in the next week or two pending clinical course. Job ID: [id number]
[2018-10-01 12:07] VITALS: BP 111/69; TEMP 97.4
[2018-10-01] MEDS: Insulin Regular 300 UNITS/3 ML VIAL SC PRN (12:47)
--- NOTE | 2018-10-01 13:08 | CON ---
DATE OF CONSULTATION: CHIEF COMPLAINT: Adenocarcinoma of the colon and diabetes, as well as cirrhosis and ascites. HISTORY OF PRESENT ILLNESS: The patient is a 73-year-old female recently hospitalized for ascites and extreme abdominal discomfort. During that hospitalization, large amount of ascitic fluid was drawn off by aspiration. She had a history of black tarry stools, so during that hospitalization, a colonoscopy was performed, which showed an obstructing lesion in the colon. This was biopsied and came back consistent with adenocarcinoma. Dr. Holguin was consulted to have that removed and as that was the purpose of this hospitalization, she is now postop into her 4th day and has had some elevated blood sugars. She states her hyperglycemia is due to her poor choices of which she ate and that normally does not run that high. Her hemoglobin A1c as in last hospitalization was 5.3. PAST MEDICAL HISTORY: As mentioned previously is hypothyroidism, [id number] diabetes, hepatic cirrhosis, cholelithiasis, alcohol abuse. PAST SURGICAL HISTORY: Status post colectomy, positive for adenocarcinoma; recent EGD and colonoscopy; section. HOSPITAL COURSE: Postop, the patient has done well; however, her blood sugars shot up fairly high. She states that this was due to poor food choices and since that episode, her actual blood sugars have been 180, 151, 140, 138, 168, and so she has done much better. Since that episode, she knows how to eat properly and agrees that she will do so in the future. On the day consultation, her temperature shot up to 102.4. This is felt to be due to atelectasis due to her bedfastness postop and the pain associated with deep cough, deep breath, and movement. PHYSICAL EXAMINATION: GENERAL: Elderly, obese, alert, cooperative female. HEENT: Normocephalic, atraumatic. Pupils are equal, round, and reactive to light. Extraocular muscles are intact. TMs, nares, pharynx are clear. NECK: Supple. CHEST: Clear to auscultation. BREAST: Deferred. HEART: Regular rate and rhythm. No murmur. ABDOMEN: With well healing incisional scar, mildly distended, mildly tender to deep palpation. Positive bowel sounds. Warm to touch. DOTTIE drain with clear fluid and minimal output according to the nurses. EXTREMITIES: Without clubbing, cyanosis, or edema. SKIN: Without rashes or lesions. NEUROLOGIC: Cranial nerves are intact. Sensory exam is intact. Mental status is at baseline. LABORATORY DATA: Lab work thus far showed normal blood sugars. WBCs on 09/29 were 11.5 with hemoglobin 12 and hematocrit of 36.6, and platelet of 192. ASSESSMENT: 1. Poorly-differentiated adenocarcinoma per pathology report. 2. Alcoholic cirrhosis with ascites. 3. Non-insulin dependent diabetes with episodes of hyperglycemia. 4. Hypothyroidism. 5. Febrile episode probably due to atelectasis. PLAN: Plan is to follow her serially and see her in 1 week. She has been counseled on proper food choices and agrees to make those in the future. She understands the deep breaths, coughing, and movement are expected to heal properly or fever is likely to return. She will follow up with Dr. Aggarwal in 1 week or sooner, if there are any further complications or issues. She will continue to check her blood sugar daily and make correct food choices. Job ID: [id number] [facility]
--- NOTE | 2018-10-01 13:34 | DIS ---
DATE OF ADMISSION: 09/28/2018 DATE OF DISCHARGE: 10/01/2018 DISCHARGE DIAGNOSES: 1. Alcoholic cirrhosis with ascites. 2. Tobacco abuse. 3. Alcohol abuse history. 4. T4a N2a M0 proximal transverse colon cancer, 5.5 cm involves visceral peritoneum attached to the omentum resected en bloc, positive for venous invasion, positive for perineural invasion, 4 of 14 lymph nodes positive. Follow up with Dr. Holguin next week, staple removal by Dr. Krishnamurthy next week, Oncology opinion. HISTORY: A 73-year-old female with admission early September because of distended abdomen. The patient had a proximal transverse colon on colonoscopy Dr. Jeffers found. She had cirrhosis with ascites and splenomegaly, evidence of portal hypertension. The patient has history of borderline diabetes treated with diet. No medications. Hemoglobin A1c 5.3, glucose 123 to 103 on this hospitalization. CAT scan of the abdomen and pelvis on 09/10/2018, noting small varices in the paraesophageal area, gastrohepatic ligament area, splenic hilum, gallstones present, changes are consistent with portal hypertension, ascites. INR of 1.2, PT of 15. Platelet count 198,000. Allergies to codeine and sulfa. She tolerated Ultram this hospitalization. She smoked a pack a day. She was counseled on tobacco cessation and low-sodium diet and fluid restrictions hoping to get her ascites under better control. She had undergone paracentesis by Interventional Radiology. The patient was admitted to this hospitalization and underwent laparotomy, right colectomy and evacuation of 3.4 L of ascites fluid. Pathology revealed above. Postoperatively, she convalesced, tolerated her diet. She was difficult to deal with on the floor as she called my office demanding that her diet be advanced earlier. She called Dr. Patricio's [facility] office compensation and benefits analyst complaining about attempts to place her peritoneal drainage catheter evacuating the ascites and complained of the pain. That did not drain significant ascites. Ultrasound of the abdomen was obtained revealing absence of any significant ascites. She refused to let the nurses disconnect this initially, but finally we convinced her to do so. She was discharged home at this time with followup with Dr. Krishnamurthy, Outpatient Oncology consultation and Dr. Holguin for staple removal next week after Cyn. Avoid lifting over 25 pounds. She was counseled on low-sodium, fluid-restricted diet. She was sent home to resume her home medications including furosemide 40 mg a day, spironolactone 100 mg a day, levothyroxine 175 mcg a day, p.r.n. ibuprofen, Tylenol, and Ultram for pain. Postoperatively, her glucose was in 300 or 400. She reports she ate sugar candies postoperatively contrary to advice. saw her. The patient refused any oral hypoglycemics. Her hemoglobin A1c was 5.3 preoperatively. At the time of discharge, her Accu-Cheks were 130 to 180. Incisional vac was used, discontinued prior to discharge. The patient's hemoglobin was 12 on discharge, white count of 11. Job ID: [id number]
== END 2018-10-01 16:08 | disposition home or self-care (01) | DRG 330 ==
LOC: SURG A 09-28 06:02
PROVIDERS: ADMIT Specialist; ATTEND Specialist
PROC: 0DTL4ZZ Resection of Transverse Colon, Percutaneous Endoscopic Approach (ICD-10-PCS; principal; 2018-09-28)
PROC: 0W9G30Z Drainage of Peritoneal Cavity with Drainage Device, Percutaneous Approach (ICD-10-PCS; 2018-09-28)
PROC: 3E0234Z Introduction of Serum, Toxoid and Vaccine into Muscle, Percutaneous Approach (ICD-10-PCS; 2018-09-30)
DX: C18.9 Malignant neoplasm of colon, unspecified (principal); C77.2 Secondary and unspecified malignant neoplasm of intra-abdominal lymph nodes; K76.6 Portal hypertension; I85.10 Secondary esophageal varices without bleeding; K70.31 Alcoholic cirrhosis of liver with ascites; C18.4 Malignant neoplasm of transverse colon; F17.210 Nicotine dependence, cigarettes, uncomplicated; F10.20 Alcohol dependence, uncomplicated; K80.80 Other cholelithiasis without obstruction; Z88.5 Allergy status to narcotic agent; Z88.2 Allergy status to sulfonamides; Z53.29 Procedure and treatment not carried out because of patient's decision for other reasons; E11.65 Type 2 diabetes mellitus with hyperglycemia; E03.9 Hypothyroidism, unspecified; E66.9 Obesity, unspecified; Z68.33 Body mass index [BMI] 33.0-33.9, adult; Z23 Encounter for immunization
CPT/HCPCS: 36415; 36416; 36430; 76705; 80048; 80053; 83036; 85025; 85610; 86850; 86900; 86901; 88309; 90471; 90662; C1729; G0008; J0131; J0670; J1100; J1650; J1815; J1885; J2001; J2185; J2250; J2370; J2405; J2704; J3010; J7050; P9047; P9059; S0028

== ENCOUNTER 2018-09-23 13:41 | Outpatient (CLI) | payer MEDICARE, OTHER ==
[2018-09-23 16:03] LABS: Hemoglobin A1c 5.4 % (4.0-6.0)
== END 2018-09-23 13:42 | disposition home or self-care (01) ==
LOC: LABBT 13:41
PROVIDERS: ATTEND Specialist
DX: Z01.812 Encounter for preprocedural laboratory examination (principal); C18.2 Malignant neoplasm of ascending colon; K74.60 Unspecified cirrhosis of liver; R18.8 Other ascites
CPT/HCPCS: 83036; 86850; 86900; 86901

== ENCOUNTER 2018-10-16 09:00 | Day surgery (SDC) | payer MEDICARE, OTHER ==
--- NOTE | 2018-10-08 23:23 | HP ---
HISTORY OF PRESENT ILLNESS: Marlon Iverson is a 73-year-old female followed by Dr. Jony Aggarwal, found to have a right colon cancer. She has cirrhosis and ascites, changes of portal hypertension. She has known cholelithiasis, asymptomatic. She underwent laparotomy, evacuation of 3.2 L of ascites fluid, right colectomy with primary anastomosis, placement of a PleurX drain catheter. This PleurX drain catheter attempt was made to drain in the hospital, but the patient screamed of pain and demanded it to be stopped. Home Health nurses tried to use it at her home with similar results. Thus, it was removed today in the office. The patient has seen Dr. Krishnamurthy and plan is for chemotherapy for invasive adenocarcinoma, moderately to poorly differentiated, 5.5 cm, T4a N2a M0. She understands the risks and benefits. We planned to do this under IV sedation local anesthesia. ALLERGIES: CODEINE AND SULFA. SOCIAL HISTORY: Tobacco pack a day. Cessation preoperatively and minimal use postoperatively. Alcohol abuse in the past, none currently. MEDICATIONS: 1. Dulcolax. 2. Vitamin D3. 3. Iron sulfate. 4. Levothyroxine. 5. Xanax. 6. Folic acid. 7. Furosemide. 8. Levothyroxine. 9. Lorazepam. 10. Multivitamins. 11. Corgard. 12. Protonix. PAST SURGICAL HISTORY: , meniscectomy, colonoscopy 20 years ago, recent colonoscopy right colon cancer, status post recent laparotomy, right colon resection, PleurX catheter as noted above. PAST MEDICAL HISTORY: Diabetes, borderline treated medically. No medications. Cirrhosis, ascites, portal hypertension, varices with liver function tests normal, renal function tests normal, and right colon cancer. PHYSICAL EXAMINATION: VITAL SIGNS: 191 pounds, 149/85, 91, 98.6 degrees. HEAD, EARS, EYES, NOSE, AND THROAT: Unremarkable. LUNGS: Clear to auscultation. CARDIAC: Regular rate and rhythm. No murmur or gallop. ABDOMEN: Soft, slightly protuberant. Fluid wave minimal. Midline wound well healed. [place] removed. Mastisol, Steri-Strips applied. PleurX catheter removed in the office. Cuff was not adherent. SKIN: Site closed with vertical mattress sutures of 3-0 nylon with local anesthetic. ASSESSMENT AND PLAN: T4 N2 M0 right colon cancer, chemotherapy access for antineoplastic treatment. We will plan MediPort placement. The risks and benefits were explained, and she consents. Job ID: [id number]
[2018-10-15 12:58] VITALS: BMI 30.7
--- NOTE | 2018-10-16 10:10 | RAD ---
1 VIEW CHEST: Date: 10/16/18 HISTORY: Colon cancer. MediPort placement. COMPARISON: None. FINDINGS: Atherosclerosis of aorta. Normal cardiac silhouette. Pulmonary vessels and hilum are normal. Costophr enic angles are clear. No consolidation or mass. No pneumothorax or osseous abnormalities. There is n o radiographic evidence of MediPort. IMPRESSION: 1. Atherosclerosis. 2. No radiographic evidence of MediPort. POS: [facility]
[2018-10-16 10:14] LABS: INR-International Normal Ratio 1.3; PTT 38.2 SEC (22.9-36.1)
[2018-10-16] MEDS ORDERED: Lidocaine 2% PF 5 ML VIAL ONE (10:23)
[2018-10-16] MEDS ORDERED: Bupivacaine HCl 0.5%/Epinephrine 1:200,000/PF 30 ml Vial ONE (10:23)
[2018-10-16 10:27] LABS: Anion Gap 14 mmol/L (10-20); BUN (Urea Nitrogen) 19 mg/dL (9.8-20.1); Calc. Creatinine Clearance 55 mL/min (70-130); Carbon Dioxide 22 mmol/L (23-31); Chloride 97 mmol/L (98-107); Estimated GFR-MDRD 42; Glucose 128 mg/dL (83-110); Potassium 4.2 mmol/L (3.5-5.1); Sodium 129 mmol/L (136-145)
[2018-10-16] MEDS ORDERED: Fentanyl 100 MCG/2 ML VIAL ONE (10:27)
[2018-10-16] MEDS ORDERED: CEFAZOLIN 2 GM/50 ML BAG ONE (10:42)
--- NOTE | 2018-10-16 12:24 | RAD ---
CHEST 1 VIEW: Date: 10/16/18 HISTORY: 73-year-old female with history of post MediPort placement evaluation. FINDINGS: Left subclavian catheter and MediPort are in place. Heart size is normal. No confluent pneumonia, ove rt edema, or pleural effusion. IMPRESSION: No acute intrathoracic disease. Left MediPort placement without pneumothorax or other acute process. Atherosclerosis of aorta. POS: [facility]
--- NOTE | 2018-10-16 14:33 | OP ---
DATE OF PROCEDURE: 10/16/2018 PREOPERATIVE DIAGNOSES: Status post right colon resection for T3 N2 colon cancer with cirrhosis and ascites, need for antineoplastic chemotherapy access. POSTOPERATIVE DIAGNOSES: Status post right colon resection for T3 N2 colon cancer with cirrhosis and ascites, need for antineoplastic chemotherapy access. PROCEDURES: Left subclavian vein low-profile MediPort, fluoroscopy used. ANESTHESIA: TIVA, local of 0.5% Marcaine with epinephrine 30 mL mixed with 2% Xylocaine 10 mL. DESCRIPTION OF PROCEDURE: The patient was taken to the operating room, where under intravenous sedation, neck and chest were prepped with ChloraPrep and draped in routine fashion. Local anesthetic was infiltrated in the skin and subcutaneous tissue about the operative site. Trocar and catheter, infraclavicular approach, left, cannulating the subclavian vein. J-wire was threaded. Trocar catheter was removed. Skin was incised and enlarged sharply. Subcutaneous pocket was created with blunt and sharp dissection using cautery for hemostasis. Dilator and Peel-Away sheath was placed over the J-wire in superior vena cava, visualized fluoroscopically, removing the J-wire and dilator and placing the catheter and removing the Peel-Away sheath and the catheter was placed in optimal position, tailored to length, connected to the MediPort, which was placed in the subcutaneous pocket, secured with 2 interrupted sutures of 3-0 Prolene. Subcutaneous tissue was approximated with 3-0 Monocryl, skin with subdermal 4-0 Monocryl. Fluoroscopic images revealed good line placement and MediPort placement without line problems. Tip was in optimal position in the superior vena cava. Dermabond was applied. The port was accessed with a Mcfadden needle, aspirated blood, flushed with heparinized saline solution. The patient tolerated the procedure well. Job ID: [id number]
== END 2018-10-16 12:15 | disposition home or self-care (01) ==
LOC: SDC 09:00
PROVIDERS: ATTEND Specialist
PROC: 0JH63WZ Insertion of Totally Implantable Vascular Access Device into Chest Subcutaneous Tissue and Fascia, Percutaneous Approach (ICD-10-PCS; principal; 2018-10-16)
DX: C18.9 Malignant neoplasm of colon, unspecified (principal); K74.60 Unspecified cirrhosis of liver; R18.0 Malignant ascites; Z79.899 Other long term (current) drug therapy; Z88.2 Allergy status to sulfonamides; Z88.5 Allergy status to narcotic agent; Z90.49 Acquired absence of other specified parts of digestive tract
CPT/HCPCS: 36561; 71045; 80048; 85610; 85730; 93005; C1788; 36415; 93010; J0131; J0670; J1642; J2001; J3010

== ENCOUNTER 2018-10-20 09:59 | Day surgery (SDC) | payer MEDICARE, OTHER ==
[2018-10-19 14:35] VITALS: BMI 31.4
[~2018-10-20 09:59] MED LIST changes: -ISOVUE-370 76%-LOCM 1 ML ONE; +Prevnar 13-Val Conj/PF 0.5 ML SYRINGE IM ONE
[2018-10-20] MEDS ORDERED: Sodium Bicarbonate 2.5 MEQ/5 ML VIAL ONE (10:02)
[2018-10-20 11:21] VITALS: BP 113/42; TEMP 97.7
[2018-10-20] MEDS ORDERED: Iopamidol 370 76% 100 ML VIAL ONE (12:51)
[2018-10-20] MEDS ORDERED: Iopamidol 370 76% 50 ML VIAL FS ONE (12:51)
--- NOTE | 2018-10-20 13:00 | ULT ---
ULTRASOUND ABDOMEN LIMITED: DATE: 10-20-18 HISTORY: 73-year-old female presents with abdominal distention, scheduled for ultrasound guided paracentesis. FINDINGS: Four quadrant survey of the abdomen demonstrates a small amount of free fluid in the right upper quad rant, and no free fluid visualized elsewhere. IMPRESSION: 1. Small amount of ascites, not enough for therapeutic paracentesis. 2. The paracentesis has been cancelled. POS: [facility]
--- NOTE | 2018-10-20 14:20 | CT ---
CT ABDOMEN AND PELVIS WITH CONTRAST: HISTORY: Abdominal distention. COMPARISON: CT abdomen and pelvis from 09/10/2018. FINDINGS: The lung bases are clear. No pericardial effusion. There is small volume perihepatic ascites. There is a small, peripherally enhancing collection withi n the right subcutaneous soft tissues, suggesting an abscess. This is poorly defined, although it me asures approximately 3 x 4 x 6 cm. This appears to extend up to the skin surface. There is severe skin and superficial fat soft tissue swelling, especially along the right anterior he miabdomen. There is abnormal enhancement of the right rectus abdominis muscle. The liver is severely cirrhotic. There are multiple splenic varices, as well as extensive esophageal varices. Mild thickening of the body of the left adrenal gland is similar to the comparison examina tion. There is cholelithiasis. No dilated loops of large or small bowel. A diverticulum is present at the third portion of the duod enum. Prior right hemicolectomy. IMPRESSION: 1. Findings concerning for a subcutaneous soft tissue and intramuscular abscess along the right ante rior hemiabdomen with extensive cellulitis throughout the anterior wall of the abdomen. There is als o some mild hyperenhancement of the right rectus abdominis muscle, concerning for early pyomyositis. 2. Hemicolectomy changes are satisfactory. 3. Improving ascites. 4. Severe hepatic cirrhosis. The patient should be placed in a screening ultrasound program. 5. Likely branch intraductal papillary mucinous neoplasm of the ventral body of the pancreas. Follo w-up MRI with pancreatic protocol in 6-12 months is recommended. 6. There is another likely branch point intraductal papillary mucinous neoplasm at the pancreatic un cinate process. POS: [facility]
== END 2018-10-20 11:10 | disposition home or self-care (01) ==
LOC: ULT 09:59
PROVIDERS: ATTEND Internal Medicine
PROC: 0W9G3ZZ Drainage of Peritoneal Cavity, Percutaneous Approach (ICD-10-PCS; principal; 2018-10-20)
DX: K70.31 Alcoholic cirrhosis of liver with ascites (principal); C18.2 Malignant neoplasm of ascending colon; E11.9 Type 2 diabetes mellitus without complications; D64.9 Anemia, unspecified; Z88.2 Allergy status to sulfonamides; Z88.5 Allergy status to narcotic agent; Z79.899 Other long term (current) drug therapy
CPT/HCPCS: 74177; 76705; 82565

== ENCOUNTER 2018-10-29 12:02 | Outpatient (CLI) | payer MEDICARE, OTHER ==
--- NOTE | 2018-10-29 16:32 | PET ---
PET SCAN WITH CT ATTENUATION CORRECTION: HISTORY: Colon cancer. 1.4 cm mass in pancreas. COMPARISON: None. CORRELATION: Abdomen and pelvis CT dated 10/20/18. TECHNIQUE: PET scanning with CT attenuation correction is performed from the base of the brain to the proximal t highs following the intravenous administration of 12.8 mCi [id number]. FINDINGS: HEAD/NECK: There is hypermetabolic activity in the left and right thyroid lobe, homogeneously. Right thyroid lob e has a maximum SUV Of 4.7. Left thyroid lobe has a maximum SUV of 3.3. CHEST: No abnormal FDG localization. ABDOMEN/PELVIS: No abnormal FDG localization in the region of concern noted in mid body of pancreas. SUV in this raissa on is 2.2. Limited evaluation due to the size of the lesion. Continued surveillance is recommended [facility] follow-up abdomen MRI or CT in approximately 1 year. There is evidence of mucosal thickening involving the distal sigmoid colon and rectum with SUV rangin g between 6.8-7.6. CT used for attenuation correction demonstrates perihepatic ascites, along the cirrhotic change of e liver. There are gallstones. Anasarca in the soft tissues is noted. IMPRESSION: 1. Hypermetabolic activity involving the distal sigmoid colon and rectum. Findings are compatible [facility] patient's history of colon cancer. 2. No evidence of FDG avidity with regards to the hypodense mass in the pancreas. Follow-up imaging is 1 year is recommended. 3. Hypermetabolic activity involving the thyroid gland, nonspecific. Correlate with thyroid ultrasou nd and thyroid laboratory values. POS: [facility]
== END 2018-10-29 12:03 | disposition home or self-care (01) ==
LOC: PET 12:02
PROVIDERS: ATTEND Internal Medicine Medical Oncology
DX: C18.9 Malignant neoplasm of colon, unspecified (principal); K86.9 Disease of pancreas, unspecified; R94.8 Abnormal results of function studies of other organs and systems
CPT/HCPCS: 78815; A9552

== ENCOUNTER 2019-02-11 12:26 | Outpatient (CLI) | payer MEDICARE, OTHER ==
[~2019-02-11 12:26] MED LIST changes: +Iopamidol 370 76% 100 ML VIAL ONE; -Prevnar 13-Val Conj/PF 0.5 ML SYRINGE IM ONE
--- NOTE | 2019-02-11 13:43 | CT ---
Exam: Abdomen and pelvic CT scan with IV contrast: HISTORY: Colon cancer follow-up COMPARISON: PET scan, 10/29/2018, abdomen and pelvic CT scan, 10/20/2018 FINDINGS: The lung bases appear clear. Nodular appearing liver evidence for cirrhosis. Scattered ascites and an asarca with improvement from the prior study. Cholelithiasis with several gallstones without gallbladder wall thickening or pericholecystic abnormal fat stranding. No ductal dilatation. Stable m ultilobulated small cystic foci in the pancreas. Minimal splenomegaly. Stable slightly nodular left adrenal gland. Stable appearing kidneys without renal calculus or obstruction. Stable multiple wade ateral renal hypodensities. Previous noted right anterior abdominal wall fluid collection has resolved. Some focal narrowing and minimal enhancement and thickening of the sigmoid portion of the c olon, presumably at the site of prior colon cancer, this narrowing and enhancement appears to be somewhat more prominent than on the prior CT depending upon clinical concern, continued follow-up PET scans in this regard are suggested. IMPRESSION: Improving ascites and anasarca. Stable splenomegaly and changes of cirrhosis of the liver. Stable sma ll cystic masses in the pancreas. Slightly more prominent colonic wall thickening and enhancement in the sigmoid colon at the presumed site of prior neoplasm, continued follow-up PET scans in this re moustapha are recommended. Other findings as above.
== END 2019-02-11 12:27 | disposition home or self-care (01) ==
LOC: BICCT 12:26
PROVIDERS: ATTEND Internal Medicine Medical Oncology
DX: C18.3 Malignant neoplasm of hepatic flexure (principal); R18.8 Other ascites; R16.1 Splenomegaly, not elsewhere classified; K74.60 Unspecified cirrhosis of liver
CPT/HCPCS: 74177; Q9967

== ENCOUNTER 2019-03-21 12:09 | Day surgery (SDC) | payer MEDICARE, OTHER ==
[2019-03-21 12:39] VITALS: BP 119/57; TEMP 97.6
[2019-03-21] MEDS ORDERED: Sodium Chloride 0.9% 200 ML ONE (13:16)
== END 2019-03-21 13:18 | disposition home or self-care (01) ==
LOC: ONC/OP 12:09
PROVIDERS: ATTEND Internal Medicine Hematology & Oncology
DX: Z45.1 Encounter for adjustment and management of infusion pump (principal)
CPT/HCPCS: 96523; J1642; J3490

== ENCOUNTER 2019-10-18 00:42 | Inpatient (IN) | payer MEDICARE, OTHER ==
[2019-10-18] MEDS ORDERED: Fentanyl 100 MCG/2 ML VIAL ONE ×4 (01:16→21:34)
[2019-10-18 01:48] LABS: Hemoglobin 14.7 g/dL (12.0-16.0); Mean Corpuscular HGB CONC 33.6 g/dL (32.0-36.0); Mean Corpuscular Hemoglobin 33.5 pg (27.0-31.0); Mean Corpuscular Volume 99.8 fL (78.0-98.0); RBC Distribution Width 12.2 % (11.5-14.5); Red Blood Cell (RBC) Count 4.39 mill/uL (4.20-5.40)
[2019-10-18 01:58] LABS: ALT (SGPT) 10 U/L (8-55); AST (SGOT) 17 U/L (5-34); Albumin 3.6 g/dL (3.4-4.8); Alkaline Phosphatase 139 U/L (40-110); Anion Gap 14 mmol/L (10-20); BUN (Urea Nitrogen) 16 mg/dL (9.8-20.1); Bilirubin, Total 0.9 mg/dL (0.2-1.2); Calc. Creatinine Clearance 0 mL/min (70-130); Calcium 9.2 mg/dL (7.8-10.44); Carbon Dioxide 22 mmol/L (23-31); Chloride 103 mmol/L (98-107); Estimated GFR-MDRD 40; Globulin 3.9 g/dL (2.4-3.5); Glucose 110 mg/dL (83-110); Potassium 4.5 mmol/L (3.5-5.1); Protein, Total 7.5 g/dL (6.0-8.3); Sodium 134 mmol/L (136-145)
[2019-10-18 02:00] LABS: #Eosinphils 0.2 thou/uL (0.0-0.7); #Lymphocytes 1.1 thou/uL (1.20-3.40); #Monocytes 0.6 thou/uL (0.11-0.59); #Neutrophils 4.2 thou/uL (1.40-6.50); %Basophils 0.5 % (0.0-1.0); %Eosinophils 3.3 % (0.0-10.0); %Lymphocytes 17.7 % (21.0-51.0); %Monocytes 9.2 % (0.0-10.0); %Neutrophils 69.3 % (42.0-75.0); Mean Platelet Volume 9.7 fL (7.4-10.4); Platelet Count 93 thou/uL (130-400); Platelet Morphology Comment Appears Decreased
[2019-10-18] MEDS ORDERED: Dextrose 5% in Water 1,000 ML IV PRN (02:45)
[2019-10-18] MEDS ORDERED: Dextrose 50% Abboject 50 ML SYRINGE SLOW IVP PRN (02:45)
[2019-10-18] MEDS ORDERED: hydrALAZINE 20 MG/ML VIAL SLOW IVP PRN (02:45)
[2019-10-18] MEDS ORDERED: Ondansetron PF 4 MG/2 ML Vial IVP PRN (02:45)
[2019-10-18] MEDS ORDERED: traMADol HCl 50 MG TAB PO PRN (02:56)
[2019-10-18 03:07] LABS: INR-International Normal Ratio 1.2
[2019-10-18 03:12] LABS: Magnesium 1.7 mg/dL (1.6-2.6); Phosphorus 2.3 mg/dL (2.3-4.7)
[2019-10-18] MEDS ORDERED: Sodium Chloride 0.9% 1,000 ML IV SCH ×2 (03:15→07:27)
[2019-10-18] MEDS ORDERED: Magnesium 2 GM/50 ML 2 GM in Premix Bag 1 BAG IVPB SCH (03:45)
[2019-10-18] MEDS: Cyclobenzaprine 10 MG TAB PO PRN ×2 (04:00→23:05)
[2019-10-18] MEDS ORDERED: Morphine 4 MG/ML VIAL SLOW IVP SCH (04:00)
--- NOTE | 2019-10-18 04:57 | HP ---
PRIMARY CARE PHYSICIAN: Jony Aggarwal MD CONSULTS: Orthopedic Surgery, Dr. Mejia CHIEF COMPLAINT: Right hip pain status post fall. HISTORY OF PRESENT ILLNESS: This is a 74-year-old female, who presented to the emergency room after a fall. The patient reports she was unable to sleep and was out of her normal insomnia medications, so she took 2-1/2 pills of her old Ambien. The patient became drowsy and had a mechanical fall while she was ambulating to the restroom. The patient denies hitting her head or having any loss of consciousness. The patient reported immediate right hip pain and abrasion to her right forearm. The patient denies any shortness of breath, fever, cold-like symptoms. The patient does report a chronic cough. PAST MEDICAL HISTORY: Hypothyroidism, esophageal varices, portal hypertension, colon cancer, chemotherapy 6 months ago completed, previous alcohol abuse, liver disease, cirrhosis, insomnia, borderline diabetes. PAST SURGICAL HISTORY: , tonsillectomy, hepatic hemangioma, bowel resection in October 2018, Mediport left chest. SOCIAL HISTORY: Stopped drinking alcohol approximately 1 year ago. Continues to smoke 1 pack a day since she was 15 years old. The patient lives at home with her . ALLERGIES: SULFA, CODEINE, WHICH MAKES HER ITCH. MEDICATIONS: 1. Levothyroxine 175 mcg p.o. daily. 2. Spironolactone. REVIEW OF SYSTEMS: A 10-point review of systems is negative unless otherwise indicated in the above HPI. PHYSICAL EXAMINATION: VITAL SIGNS: Pulse 63, respirations 21, blood pressure 131/65, SpO2 of 98% on room air, temperature 98.2. GENERAL: Elderly female, awake, alert, in moderate distress due to right hip pain. HEENT: Head is atraumatic and normocephalic. Pupils are equal bilateral. Extraocular muscles intact. Mucous membranes mildly dry. Pharynx exam normal. NECK: Normal range of motion. No cervical spine tenderness. Trachea is midline. RESPIRATORY: Bilateral breath sounds clear. No wheezing, rales, or rhonchi. No respiratory distress. CARDIAC: Regular rate, regular rhythm, no murmur. BACK: Obese, nontender. EXTREMITIES: Moves all extremities, right hip pain and tenderness with palpation, distal pulses 2+ in all extremities. No pedal edema. NEUROLOGIC: Oriented to person, place, time, and event. No focal deficit. LABORATORY DATA: WBC 6.0, RBC 4.39, hemoglobin 14.7, hematocrit 43.8, platelets 93. Sodium 134, potassium 4.5, chloride 103, BUN 16, creatinine 1.31, estimated GFR 40. Glucose 110, calcium 9.2, phosphorus 2.3, magnesium 1.7, total bilirubin 0.9, AST 17, ALT 10, alkaline phosphatase 139, albumin 3.6. DIAGNOSTIC DATA: 1. Right hip x-ray; impression, right hip fracture. 2. Chest x-ray, pending. 3. A 12-lead EKG, pending. ASSESSMENT: 1. Status post fall from standing after taking Ambien. 2. Right hip fracture. 3. Acute traumatic pain. 4. Right arm abrasion. 5. Thrombocytopenia. 6. Acute on chronic renal failure, stage 3. 6. History of hypothyroidism, esophageal varices, previous alcohol abuse, colon cancer, chemotherapy 6 months ago, cirrhosis, insomnia, and chronic obstructive pulmonary disease. PLAN: The patient will be n.p.o., and placed on IV maintenance fluids, normal saline [address] will [address] the patient on pain regimen. The patient is pending evaluation by Orthopedic Surgery, Dr. Mejia. We will place the patient on p.r.n. neb treatments. We will place a PT/OT consult to evaluate and treat postop. We will place inpatient rehab screen as the patient most likely will need additional physical therapy. The plan was discussed with the patient's family, who agrees. DVT prophylaxis with SCDs at this time. The plan will be discussed with the attending after this dictation. Job ID: [id number] [facility]
[2019-10-18] MEDS: traMADol HCl 50 MG TAB PO SCH ×4 (05:58→23:05)
[2019-10-18] MEDS ORDERED: Acetaminophen 325 MG TAB PO SCH (06:00)
[2019-10-18] MEDS ORDERED: Ketorolac Tromethamine 30 MG/ML VIAL IVP SCH (06:00)
[2019-10-18 06:34] VITALS: BMI 33.0
--- NOTE | 2019-10-18 07:59 | RAD ---
XR Pelvis AP STANDARD History: Fall. Pain. Comparison: None. Findings: Nondisplaced fracture through the intertrochanteric region of the right femur extending int o the subtrochanteric region and femoral neck. This fracture is nondisplaced. Possible fracture of the right inferior pubic ramus. Impression: 1. Nondisplaced subtle linear fracture of the right femoral neck extending to the intertrochanteric r egion and subtrochanteric region. 2. Possible nondisplaced fracture right inferior pubic ramus.
[2019-10-18 08:09] LABS: Bilirubin Negative (Negative); Blood, Urine 2+ (Negative); Clarity Clear (Clear); Glucose, Urine (Dipstick) Normal (Negative); Leukocyte 250 Leu/uL (Negative); Nitrite Negative (Negative); Protein, Urine (Dipstick) Negative (Neg-Trace); Squamous Epithelial 0-3 HPF (0-3); Urobilinogen Normal mg/dL (Less than 2)
[2019-10-18 08:10] LABS: Bacteria/HPF 1+ HPF (None Seen)
[2019-10-18 08:11] LABS: Urine Culture Reflex Yes Yes
[2019-10-18] MEDS: Morphine 2 MG/ML SYRINGE SLOW IVP PRN ×2 (08:27→22:52)
--- NOTE | 2019-10-18 08:45 | RAD ---
TWO VIEWS OF THE RIGHT HIP: COMPARISON: Pelvic radiograph 10/18/2019. HISTORY: Right hip pain after a fall. FINDINGS: Two views of the right hip show a questionable lucency through the right femoral neck. This could be artifactual as this is not appreciated on the pelvic radiograph. No degenerative changes are seen. IMPRESSION: Questionable lucency through the right femoral neck. Evaluation is limited secondary to the patient' s large body habitus. If the patient cannot bear weight, then a CT of the right hip should be perfor med. POS: CET
--- NOTE | 2019-10-18 08:51 | RAD ---
SINGLE VIEW CHEST: Date: 10/18/2019 COMPARISON: 10/16/18. HISTORY: Preop radiograph. FINDINGS: Single view of the chest shows normal sized cardiomediastinal silhouette with atherosclerotic calcifi cations in the aorta. The MediPort is unchanged in position. There is no evidence of consolidation, m ass, or pleural effusion. IMPRESSION: No evidence of acute cardiopulmonary disease. POS: CET
[2019-10-18] MEDS ORDERED: CEFAZOLIN 2 GM in Premix Bag 1 BAG IVPB SCH (09:30)
--- NOTE | 2019-10-18 09:33 | CT ---
CT Lower Ext Rt WO Con History: Fracture Comparison: Radiograph same day Findings: Fracture of the subcapital right femoral neck with mild valgus impaction with extension to the greater trochanter, femoral neck, and lesser trochanter. The fracture extends to the femoral diaphysis for length of 14 cm from the hip joint. The ilium is intact. Sacrum is intact. Superior and inferior pubic rami are intact. Intrapelvic soft tissues: Trace free fluid. High-grade degenerative disease of the lower lumbar spine with posterior disc osteophyte complexes ca using neural foraminal and spinal canal narrowing as well as right-sided L4/L5 near complete height loss with subcortical erosive change. Impression: Nondisplaced subcapital femoral neck fracture with mild valgus impaction extending to the lesser and greater trochanters distally into the diaphysis, 14 cm from the hip joint.
[2019-10-18] MEDS: Polyethylene Glycol 3350 17 GM Packet PO SCH (10:12)
[2019-10-18] MEDS: Senokot S 8.6-50 MG TAB PO SCH ×2 (10:13→23:17)
[2019-10-18] MEDS: Nitrofurantoin Monohyd/M-Cryst 100 MG CAP PO SCH ×2 (10:21→23:16)
[2019-10-18] MEDS ORDERED: PROPOFOL 200 MG/20 ML VIAL ONE (10:44)
[2019-10-18] MEDS ORDERED: Glycopyrrolate 0.2 MG/ML 5 ML SYRINGE ONE (10:44)
[2019-10-18] MEDS ORDERED: Rocuronium Bromide 10 MG/ML (10ML VIAL) ONE (10:44)
[2019-10-18] MEDS ORDERED: Ondansetron PF 4 MG/2 ML Vial ONE (10:44)
[2019-10-18] MEDS ORDERED: ePHEDrine/0.9% NaCl/PF SYRINGE 50 mg/10 ml ONE (10:44)
[2019-10-18] MEDS ORDERED: Lidocaine 1% PF 5 ML VIAL ONE (10:44)
[2019-10-18] MEDS: Ferrous Sulfate 325 MG TAB PO SCH (10:53)
[2019-10-18] MEDS: Nadolol 40 MG TAB PO SCH (12:41)
--- NOTE | 2019-10-18 19:41 | CON ---
DATE OF CONSULTATION: 10/18/2019 This is Celio Farrell PA-C dictating a report for Mitch Thomas MD. We were asked by Trauma and ER to see the patient. HISTORY OF PRESENT ILLNESS: The patient is a 74-year-old female, who was unable to sleep, got up at night, after she took some Ambien, became drowsy and fell on her way to the bathroom. No other injuries other than right hip fracture and right hip pain. She did have a little bit of an abrasion to her right forearm, but otherwise is doing quite well. This morning, when I saw the patient, she was little somnolent from the pain medication she got, but we had a good long discussion about her care and surgery she was about to undergo today. PAST MEDICAL HISTORY: Positive for; 1. Hypothyroidism. 2. Hypertension. 3. Colon cancer. 4. Liver disease. 5. Cirrhosis. 6. Borderline diabetes. 7. Insomnia. 8. Some esophageal varices. PAST SURGICAL HISTORY: 1. . 2. Tonsils. 3. Hepatic hemangioma. 4. Bowel resection. 5. MediPort, left chest. SOCIAL HISTORY: Quit drinking about a year ago. Continues to smoke about a pack a day. Lives at home with her . ALLERGIES: SULFA, CODEINE. MEDICATIONS: 1. Levothyroxine. 2. Spironolactone. 3. Ambien. REVIEW OF SYSTEMS: Positive for right hip pain, little bit of pain to the right arm, but denies any chest pain, current shortness of breath. No bowel or bladder issues currently. Rest of review of systems is negative. PHYSICAL EXAMINATION: GENERAL: Well-nourished female, alert, no acute distress. Speech is clear. Answers question appropriately. She is alert and oriented x3. HEENT: Face is symmetric. Tongue in midline. NECK: Supple. Trachea in midline. LUNGS: Respiratory rate 16. No acute distress. EXTREMITIES: Upper extremities; equal size, shape, symmetry. Normal bulk and tone with movements that are symmetric and abrasion to the right forearm. Lower extremities; right lower extremity is minutely shortened and outward rotated. She has some pain to the right hip area. She is able to wiggle her toes, both feet well. No numbness or tingling. DP and PT pulses are intact. DIAGNOSTIC DATA: X-rays, right hip fracture, medically cleared by Trauma. ASSESSMENT: Right hip fracture, status post fall. PLAN: I had a long talk with the patient about the risks and benefits of surgery. I discussed surgery would be a short trochanteric femoral nail. I explained the procedure, the patient has good understanding of the procedure and the reason for doing the procedure. I went over the risks of bleeding, infection, scar tissue, blood clots, stroke, heart attack. She understands the risks. Her questions and concerns have been addressed and she is amenable to go forth with surgery. If the patient has further questions, we will discuss these prior to surgery. Job ID: [id number]
[2019-10-18] MEDS ORDERED: Lidocaine 2% Jelly 5 ML TUBE ONE (19:55)
[2019-10-18] MEDS ORDERED: Ondansetron HCl/PF 4 MG/2 ML Vial IVP PRN (21:29)
[2019-10-18] MEDS ORDERED: Promethazine HCl 25 MG/ML VIAL SLOW IVP PRN (21:29)
[2019-10-18] MEDS ORDERED: Promethazine HCl 25 MG/ML VIAL IM PRN (21:29)
--- NOTE | 2019-10-18 22:07 | RAD ---
Exam: XR Hip Rt 2-3 View HISTORY: Post right hip pinning. COMPARISON: 10/18/2019 at 0108 hours FINDINGS: An antegrade intramedullary josue with dynamic compression screw as well as distal interlocking screw n ow transfix the proximal right femur. No hardware complication is seen. Fluoroscopy: Total fluoroscopy time-43.9 seconds, total dose-12.79 mGy IMPRESSION: Internal fixation right proximal femur. Correlation with intraoperative findings is recommended.
[2019-10-19] MEDS: CEFAZOLIN 2 GM in Premix Bag 1 BAG IVPB SCH ×3 (01:47→17:04)
[2019-10-19] MEDS: Levothyroxine 175 MCG TAB PO SCH (05:12)
[2019-10-19] MEDS: traMADol HCl 50 MG TAB PO SCH ×4 (05:12→23:58)
[2019-10-19 06:25] LABS: #Lymphocytes 0.5 thou/uL (1.20-3.40); #Monocytes 0.6 thou/uL (0.11-0.59); #Neutrophils 10.1 thou/uL (1.40-6.50); %Basophils 0.3 % (0.0-1.0); %Eosinophils 0.3 % (0.0-10.0); %Lymphocytes 4.6 % (21.0-51.0); %Neutrophils 89.7 % (42.0-75.0); Hemoglobin 13.3 g/dL (12.0-16.0); Mean Corpuscular HGB CONC 33.6 g/dL (32.0-36.0); Mean Corpuscular Hemoglobin 33.7 pg (27.0-31.0); Mean Platelet Volume 8.9 fL (7.4-10.4); Platelet Count 80 thou/uL (130-400); Red Blood Cell (RBC) Count 3.95 mill/uL (4.20-5.40); White Blood Cell (WBC) Count 11.3 thou/uL (4.8-10.8)
[2019-10-19 06:41] LABS: Chloride 103 mmol/L (98-107); Potassium 5.1 mmol/L (3.5-5.1); Sodium 130 mmol/L (136-145)
[2019-10-19 06:42] LABS: Calcium 8.6 mg/dL (7.8-10.44); Glucose 135 mg/dL (83-110)
[2019-10-19 06:44] LABS: Anion Gap 11 mmol/L (10-20); Carbon Dioxide 21 mmol/L (23-31)
[2019-10-19 06:45] LABS: Phosphorus 2.3 mg/dL (2.3-4.7)
[2019-10-19 06:46] LABS: Calc. Creatinine Clearance 59 mL/min (70-130); Estimated GFR-MDRD 42
[2019-10-19 06:47] LABS: BUN (Urea Nitrogen) 19 mg/dL (9.8-20.1)
[2019-10-19 06:48] LABS: Magnesium 1.9 mg/dL (1.6-2.6)
[2019-10-19] MEDS ORDERED: FLU VACC TS2019-20(65YR UP)/PF 180 MCG/0.5 ML SYRINGE IM ONE (07:15)
[2019-10-19] MEDS: Cyclobenzaprine 10 MG TAB PO PRN (07:28)
--- NOTE | 2019-10-19 07:55 | PRG ---
DATE OF SERVICE: 10/18/2019 SUBJECTIVE: The patient was seen this morning lying in bed flat with no signs of acute distress. She reported pain is well controlled when she did not move. She is pending the OR today with Dr. Mejia for fixation of her right hip fracture. OBJECTIVE: VITAL SIGNS: Temperature 98.4, pulse 80, respirations 18, oxygen saturation 92% on room air, and blood pressure 113/73. GENERAL: Well-appearing elderly female, lying in bed with no signs of acute distress. PULMONARY: Equal chest rise and fall. Clear breath sounds bilaterally. No signs of acute respiratory distress. CARDIAC: Regular rate and rhythm. No murmurs, gallops or rubs. GI: Abdomen is soft, nontender, and nondistended. EXTREMITIES: 2+ pulses in all extremities. No significant swelling noted. Gross motor and sensation intact. She does have right lower extremity hip tenderness. NEUROLOGIC: GCS is 15. LABORATORY FINDINGS: White count 6.0, hemoglobin 14.4, hematocrit 43.8, and platelets 93. Sodium 134, potassium 4.5, chloride 105, bicarb 22, BUN 16, creatinine 1.31, and glucose 110. Phosphorus 2.3. Magnesium 1.7. UA; positive for bacteria, white cells, leuk esterase, and blood. DIAGNOSTIC FINDINGS: There are no new diagnostic findings to discuss. ASSESSMENT: 1. Status post ground-level fall. 2. Right hip fracture. 3. Urinary tract infection. 4. Right arm abrasion. 5. Chronic hyponatremia. 6. History of portal hypertension, hypothyroidism, esophageal varices, liver disease, cirrhosis, colon cancer with recent resection and chemotherapy last 6 months ago, and chronic obstructive pulmonary disease. PLAN: Continue n.p.o. with normal saline at 70 an hour. She is to go to the OR today with Dr. Mejia for fixation of her right hip fracture. Postoperatively, she will have p.o. diet with oral pain medications. She will work with Physical and Occupational Therapy and likely need placement at a rehab facility. We will restart her home medications as clinically indicated. We will discontinue IV fluids when she is back from the OR. The patient will also be given 3 days of Macrobid for urinary tract infection and will follow up urine cultures. The patient was seen and examined by Dr. Perry and myself this morning during rounds. Job ID: [id number]
[2019-10-19] MEDS: Senokot S 8.6-50 MG TAB PO SCH ×2 (09:14→20:18)
[2019-10-19] MEDS: Nitrofurantoin Monohyd/M-Cryst 100 MG CAP PO SCH ×2 (09:14→20:18)
[2019-10-19] MEDS: Polyethylene Glycol 3350 17 GM Packet PO SCH (09:14)
[2019-10-19] MEDS: Nadolol 40 MG TAB PO SCH (09:39)
[2019-10-19] MEDS: Ferrous Sulfate 325 MG TAB PO SCH (09:39)
[2019-10-19] MEDS ORDERED: Gabapentin 300 MG CAP PO SCH (11:30)
[2019-10-19] MEDS: Acetaminophen 500 MG TAB PO SCH ×2 (13:13→17:04)
[2019-10-19] MEDS: Gabapentin 300 MG CAP PO SCH (20:18)
--- NOTE | 2019-10-19 23:16 | OP ---
DATE OF PROCEDURE: 10/18/2019 PREOPERATIVE DIAGNOSIS: Right intertrochanteric femur fracture. POSTOPERATIVE DIAGNOSIS: Right intertrochanteric femur fracture. PROCEDURE PERFORMED: TFNA right intertrochanteric femur fracture. ANESTHESIA: General. IMPLANT: Synthes system was used with a 9 x 170 mm TFNA with a 90 mm hip screw and a single 5 mm distal cross-lock screw. ESTIMATED BLOOD LOSS: 50 mL. COMPLICATIONS: None. DRAINS: None. SPECIMEN: None. OUTCOME: Near-anatomic alignment. INDICATION: The patient is a 74-year-old lady status post ground level fall sustaining a right intertrochanteric femur fracture without displacement. After discussion with the patient including risks and benefits, we decided to proceed with placement of an intramedullary hip screw due to the fact that the fracture does get into the level of the lesser trochanter with some mild comminution at this level. Informed consent has been obtained, I believe all questions have been answered. DESCRIPTION OF PROCEDURE: The patient was brought to the operating room and a time-out performed followed by induction of general anesthesia. The patient was positioned supine on the fracture table with the injured extremity held in longitudinal traction and the well leg scissored to allow for AP and lateral imaging of the right hip. Next, a sterile prep and drape was performed of the right lateral thigh. Next, under C-arm localization, a skin incision was made just proximal to greater trochanter. After skin was sharply incised, dissection was carried down bluntly such the tip of the greater trochanter could be palpated. A threaded guidewire was then passed at the tip of the greater trochanter into the proximal femoral intramedullary canal. A starting reamer was then passed over this guidewire. Next, A 9 x 170 mm TFNA was passed from the starting point down into the intramedullary canal, brought to an appropriate depth as based on C-arm imaging. Next, a second incision was made distal to the first and then the hip screw jig was inserted through this incision up against the lateral cortex of the femur. A threaded guidewire was now inserted through this jig across the femur, lateral cortex of the femur, up the femoral neck into the femoral head. Once appropriately positioned, measurement off this pin was used to determine reaming depth. Next, a 90 mm hip screw was passed over this guidewire under C-arm guidance. Once fully engaged, the locking mechanism was fully driven into place and then backed off a half turn to allow for sliding of the hip screw. This jig was then removed and then using the outrigger, a single distal cross-lock screw was applied. Final AP and lateral C-arm images were then obtained. The 2 incision sites were irrigated with bulb syringe, then closed in layers with 2-0 Vicryl and latesha for the final closure. Xeroform gauze and tape dressing was applied to these wounds and the patient was transferred to recovery room in stable condition. There were no complications. She tolerated the procedure well. Job ID: [id number]
[2019-10-20] MEDS: Acetaminophen 500 MG TAB PO SCH ×4 (00:02→17:51)
--- NOTE | 2019-10-20 00:09 | PRG ---
DATE OF SERVICE: 10/19/2019 SUBJECTIVE: Ms. Iverson is a 74-year-old female, status post ground level fall with right hip fracture and new urinary tract infection. The patient underwent ORIF of right hip fracture. Postop, the patient reports pain is well controlled. She developed no fever or shortness of breath. She not yet had bowel and she tolerated her regular diet. Currently, the patient is lying in bed comfortable with no acute respiratory distress. OBJECTIVE: VITAL SIGNS: Temperature 98.7, heart rate 74, respiratory rate 18, O2 saturation 100 on 2 L, blood pressure 104/57. LUNGS: Clear bilaterally. HEART: Regular rate and rhythm. ABDOMEN: Soft, nondistended. EXTREMITIES: Neurovascularly intact x4. Postop dressing clean, dry, intact. NEUROLOGICAL: No focal neurology deficits. ASSESSMENT: 1. Status post ground level fall. 2. Right hip fracture, status post ORIF of right hip fracture. 3. Urinary tract infection, treated. 4. History of hypertension, hypothyroid, liver disease, cirrhosis, colon cancer, and chronic obstructive pulmonary disease. PLAN: Continue supportive care. Continue pain control. She will be working with PT and OT tomorrow. Continue DVT prophylaxis. Anticipate placement in rehabilitation facility. Job ID: [id number]
[2019-10-20] MEDS: Levothyroxine 175 MCG TAB PO SCH (05:18)
[2019-10-20] MEDS: traMADol HCl 50 MG TAB PO SCH ×3 (05:19→17:50)
[2019-10-20 08:27] LABS: Anion Gap 12 mmol/L (10-20); BUN (Urea Nitrogen) 24 mg/dL (9.8-20.1); Calc. Creatinine Clearance 50 mL/min (70-130); Calcium 8.4 mg/dL (7.8-10.44); Carbon Dioxide 22 mmol/L (23-31); Chloride 94 mmol/L (98-107); Estimated GFR-MDRD 35; Glucose 117 mg/dL (83-110); Magnesium 1.8 mg/dL (1.6-2.6); Phosphorus 2.9 mg/dL (2.3-4.7); Sodium 123 mmol/L (136-145)
[2019-10-20] MEDS ORDERED: Magnesium 2 GM/50 ML 2 GM in Premix Bag 1 BAG IVPB SCH (08:45)
[2019-10-20] MEDS ORDERED: Sodium Chloride 0.9% 1,000 ML IV SCH (08:45)
[2019-10-20] MEDS ORDERED: Propranolol 10 MG TAB PO SCH (09:00)
[2019-10-20] MEDS: Ferrous Sulfate 325 MG TAB PO SCH (09:56)
[2019-10-20] MEDS: Gabapentin 300 MG CAP PO SCH ×2 (09:57→20:57)
[2019-10-20] MEDS: Nitrofurantoin Monohyd/M-Cryst 100 MG CAP PO SCH ×2 (09:59→20:57)
[2019-10-20] MEDS: Nadolol 40 MG TAB PO SCH (09:59)
[2019-10-20] MEDS: Senokot S 8.6-50 MG TAB PO SCH ×2 (10:00→20:57)
[2019-10-20] MEDS: Polyethylene Glycol 3350 17 GM Packet PO SCH (10:00)
[2019-10-20] MEDS: Aspirin 81 mg Enteric Coated Tablet PO SCH ×2 (10:08→20:57)
--- NOTE | 2019-10-20 16:50 | PRG ---
DATE OF SERVICE: 10/20/2019 SUBJECTIVE: Ms. Iverson is a 74-year-old female status post ground-level fall with right hip fracture. She underwent ORIF of right hip fracture. She also has a new uncomplicated urinary tract infection, but reports her pain seems well controlled with rest, but she is not yet working progressively with Physical Therapy. She tolerated with her regular diet. She has urine retention and she has not yet had bowel since she come to the hospital. OBJECTIVE: GENERAL: She is lying in bed comfortable with no acute respiratory distress. VITAL SIGNS: Temperature 98.3, heart rate 73, respiratory rate 20, O2 sat 93% on room air, and blood pressure 105/64. LUNGS: Clear bilaterally. HEART: Regular rate and rhythm. ABDOMEN: Soft, seems to be distended a little bit, but no rebound noted. The patient is still bloated, bowel sounds active. EXTREMITIES: Neurovascularly intact x4. Postop dressing dry, clean, and intact. NEUROLOGIC: No focal neurology deficits. ASSESSMENT: 1. Status post ground-level fall. 2. Right hip fracture, status post open reduction and internal fixation of right hip fracture. 3. Urinary tract infection, treated. 4. History of hypertension, hypothyroid, liver disease, cirrhosis, colon cancer, and chronic obstructive pulmonary disease. PLAN: Continue supportive care. Continue pain control. Continue working with PT/OT. Continue DVT prophylaxis. Sabillon catheter for retention. Lactulose for constipation. Anticipate placement in rehabilitation facility tomorrow. Job ID: [id number]
[2019-10-20] MEDS: Ondansetron ODT 4 MG TAB PO PRN (20:56)
[2019-10-20] MEDS: Propranolol 10 MG TAB PO SCH (20:57)
[2019-10-20] MEDS: Sodium Chloride 1 GM TAB PO SCH (20:58)
[2019-10-21] MEDS: Acetaminophen 500 MG TAB PO SCH ×4 (00:06→20:29)
[2019-10-21] MEDS: traMADol HCl 50 MG TAB PO SCH ×2 (00:06→06:26)
[2019-10-21] MEDS ORDERED: Promethazine HCl 25 MG/ML VIAL IM SCH (00:15)
[2019-10-21] MEDS: Levothyroxine 175 MCG TAB PO SCH (06:13)
[2019-10-21] MEDS: Ondansetron ODT 4 MG TAB PO PRN (06:31)
[2019-10-21] MEDS ORDERED: Bisacodyl 10 MG SUPP PR SCH (07:00)
[2019-10-21] MEDS ORDERED: Metoclopramide HCl 10 MG/2 ML VIAL IVP SCH (07:45)
[2019-10-21 08:45] LABS: ALT (SGPT) Less than 7 U/L (8-55); AST (SGOT) 16 U/L (5-34); Albumin 3.3 g/dL (3.4-4.8); Alkaline Phosphatase 122 U/L (40-110); Anion Gap 14 mmol/L (10-20); BUN (Urea Nitrogen) 27 mg/dL (9.8-20.1); Bilirubin, Total 1.8 mg/dL (0.2-1.2); Calc. Creatinine Clearance 60 mL/min (70-130); Calcium 9.4 mg/dL (7.8-10.44); Carbon Dioxide 24 mmol/L (23-31); Chloride 92 mmol/L (98-107); Estimated GFR-MDRD 43; Globulin 3.9 g/dL (2.4-3.5); Glucose 160 mg/dL (83-110); Magnesium 2.3 mg/dL (1.6-2.6); Phosphorus 2.8 mg/dL (2.3-4.7); Protein, Total 7.2 g/dL (6.0-8.3); Sodium 125 mmol/L (136-145)
[2019-10-21 08:54] LABS: Hemoglobin 13.5 g/dL (12.0-16.0); Mean Corpuscular HGB CONC 33.9 g/dL (32.0-36.0); Mean Corpuscular Hemoglobin 33.9 pg (27.0-31.0); Mean Corpuscular Volume 99.9 fL (78.0-98.0); Mean Platelet Volume 9.1 fL (7.4-10.4); Platelet Count 140 thou/uL (130-400); RBC Distribution Width 12.1 % (11.5-14.5); Red Blood Cell (RBC) Count 3.99 mill/uL (4.20-5.40); White Blood Cell (WBC) Count 14.2 thou/uL (4.8-10.8)
[2019-10-21] MEDS ORDERED: Famotidine 20 MG TAB PO SCH (09:00)
[2019-10-21] MEDS ORDERED: Pantoprazole 40 MG VIAL IVP SCH (09:00)
[2019-10-21 09:12] LABS: Band 17 % (5-11); Lymphocytes 4 % (21-51); MDiff Complete? YES; Monocytes 7 % (0-10); Neutrophil 71 % (42-75); RBC Morphology Normal; Reactive Lymphocytes 1 % (0-10)
[2019-10-21] MEDS ORDERED: traMADol HCl 50 MG TAB PO PRN (09:15)
[2019-10-21] MEDS ORDERED: Sodium Chloride 0.9% (PF) 10 ML VIAL FS PRN (09:21)
[2019-10-21] MEDS: Nitrofurantoin Monohyd/M-Cryst 100 MG CAP PO SCH (11:21)
[2019-10-21] MEDS: Cipro 250 MG TAB PO SCH ×2 (11:33→20:29)
[2019-10-21] MEDS: Aspirin 81 mg Enteric Coated Tablet PO SCH (11:33)
[2019-10-21] MEDS: Ferrous Sulfate 325 MG TAB PO SCH (11:33)
[2019-10-21] MEDS: Gabapentin 300 MG CAP PO SCH ×2 (11:33→20:29)
[2019-10-21] MEDS: Sodium Chloride 1 GM TAB PO SCH ×2 (11:34→20:29)
[2019-10-21] MEDS: Polyethylene Glycol 3350 17 GM Packet PO SCH (11:34)
[2019-10-21] MEDS: Senokot 8.6 MG TAB PO SCH ×2 (11:34→20:30)
[2019-10-21] MEDS: Propranolol 10 MG TAB PO SCH ×2 (11:34→20:29)
[2019-10-21] MEDS: Sodium Chloride 0.9% 1,000 ML IV SCH ×2 (11:34→20:30)
[2019-10-21] MEDS ORDERED: Acetaminophen 500 MG TAB PO SCH (15:30)
--- NOTE | 2019-10-21 15:44 | PRG ---
DATE OF SERVICE: 10/21/2019 This is Leandro Davidson PA-C dictating a report for Samuel Perry DO. Seen with Dr. Samuel Perry. SUBJECTIVE: This is a 74-year-old female, status post ground level fall. She is hospital day #3, postop day #2, status post ORIF of the right hip fracture. She has not move much. She started to have some abdominal distention. Over the course of the evening, she has vomited 3 times and is passing very little flatus. She has been given Zofran, we have ordered dose of metoclopramide and she has now had one liquid stool. She is now passing flatus and since the time she was seen approximately 9:30 hours, she has had two additional bowel movements. The patient has been accepted at rehab. However, she had UTI and now has a leukocytosis. Therefore, we are treating her for the same and she will receive 2 days of Macrobid. We have stopped her p.o. intake, started normal saline 100/hour. We have resumed her Lovenox. She has requested us to talk to Dr. Venegas, whom I have called. The patient is sitting up. She has worked some with PT, but is nearly a max assist. No other complaints this morning. OBJECTIVE DATA: VITAL SIGNS: Temperature is 98.4, blood pressure 146/78, heart rate is 70, breathing 16 times per minute, 95% on 2 L of oxygen nasal cannula. GENERAL: This is a 74-year-old obese female, lying nearly supine in bed. We have made her semi-Rondon's. HEENT: Normocephalic and atraumatic. RESPIRATORY: Equal rise and fall. Bilateral breath sounds, clear to auscultation. CARDIOVASCULAR: Regular rate and rhythm. ABDOMEN: Protuberant, distended, hyper-resonant. She does report passing some flatus. Slight tenderness but no peritoneal signs. PELVIS: Stable. MUSCULOSKELETAL: Moves extremities. No dora edema. Strong pulses. PSYCHIATRIC: Normal mood and affect. NEUROLOGIC: Alert and oriented to person, place, time, and event. LABORATORY DATA: White blood cell count of 14.2, platelets are 140. Hemoglobin and hematocrit are 13.5 and 39.8 respectively. Chemistry; sodium is 125, potassium is 5.0, chloride is 92, CO2 is 24, BUN is 27, creatinine is 1.23, glucose is 160, bilirubin is 1.8, AST and ALT are 16 and 7, and alkaline phosphatase is 122. ASSESSMENT: 1. Status post ground level fall. 2. Right hip fracture, status post open reduction and internal fixation of the right hip. 3. Urinary tract infection, currently being treated. 4. Hyponatremia, could be polydipsia in nature. 5. Ileus. 6. History of hypertension, hypothyroidism, liver disease, cirrhosis of the liver, colon cancer, chronic obstructive pulmonary disease. PLAN: 1. Oxygen as needed to maintain SpO2 greater than 92%. 2. Stop oral diet. 3. Resume IV fluids at 100/hour. 4. I was going to provide neostigmine, she has been given 10 of Reglan and actually had 3 bowel movements and is passing flatus, feeling somewhat better, we will hold off on the order of neostigmine. 5. Resume Lovenox [address] Venegas with Gastroenterology, the patient's outpatient GI has been contacted. No consult needed. Discussed case, appreciate his taking our call. 7. Start Cipro for UTI. 8. Continue pain regimen. 9. Start Protonix and stop Pepcid. 10. Encourage ambulation when the patient is able. 11. Repeat labs in the morning, specifically for her nearly acute hyponatremia. 12. Continue all other supportive care. 13. Anticipate discharge to rehab facility when the patient is more stable, will need re-evaluation. 14. The patient was seen by Dr. ePrry, can be updated as needed. 15. Limit amount of APAP for Cirrhosis patient. Job ID: [id number] [facility]
[2019-10-21] MEDS ORDERED: Enoxaparin Sodium 30 MG/0.3 ML SYRINGE SC SCH (21:00)
--- NOTE | 2019-10-22 00:09 | PRG ---
DATE OF SERVICE: 10/21/2019 SUBJECTIVE: Ms. Iverson is asleep, stable vital signs. She has had bowel movements, is passing flatus. States that she feels a little bit better. Discussed the case with GI. We are ordering a TSH for the morning. The patient has not vomited any longer. She is still on IV fluids. We discussed with bedside RN. We will keep her n.p.o. tonight, on IV fluids and reassess her ileus tomorrow. Reduced her Tylenol doses to max 2 g daily. There are no other changes. The patient is hemodynamically stable. Answered questions at bedside. Job ID: [id number]
[2019-10-22] MEDS: Cyclobenzaprine 10 MG TAB PO PRN (02:37)
[2019-10-22] MEDS: Levothyroxine 175 MCG TAB PO SCH (05:19)
[2019-10-22 05:43] LABS: #Basophils 0.1 thou/uL (0.0-0.2); #Eosinphils 0.5 thou/uL (0.0-0.7); #Lymphocytes 1.2 thou/uL (1.20-3.40); #Monocytes 1.4 thou/uL (0.11-0.59); #Neutrophils 6.9 thou/uL (1.40-6.50); %Basophils 0.5 % (0.0-1.0); %Eosinophils 5.3 % (0.0-10.0); %Lymphocytes 11.9 % (21.0-51.0); %Monocytes 13.9 % (0.0-10.0); %Neutrophils 68.3 % (42.0-75.0); Hemoglobin 10.5 g/dL (12.0-16.0); Mean Corpuscular HGB CONC 33.7 g/dL (32.0-36.0); Mean Corpuscular Hemoglobin 33.5 pg (27.0-31.0); Mean Corpuscular Volume 99.4 fL (78.0-98.0); Mean Platelet Volume 9.1 fL (7.4-10.4); Platelet Count 153 thou/uL (130-400); RBC Distribution Width 12.4 % (11.5-14.5); Red Blood Cell (RBC) Count 3.15 mill/uL (4.20-5.40); White Blood Cell (WBC) Count 10.1 thou/uL (4.8-10.8)
[2019-10-22 06:11] LABS: Anion Gap 11 mmol/L (10-20); BUN (Urea Nitrogen) 51 mg/dL (9.8-20.1); Calc. Creatinine Clearance 60 mL/min (70-130); Calcium 8.2 mg/dL (7.8-10.44); Carbon Dioxide 21 mmol/L (23-31); Chloride 100 mmol/L (98-107); Estimated GFR-MDRD 43; Glucose 79 mg/dL (83-110); Magnesium 2.1 mg/dL (1.6-2.6); Phosphorus 1.6 mg/dL (2.3-4.7); Sodium 127 mmol/L (136-145)
[2019-10-22] MEDS ORDERED: Sodium Phosphate 30 MMOL in Sodium Chloride 0.9% 250 ML 250 ML IVPB SCH (07:00)
[2019-10-22] MEDS: Senokot 8.6 MG TAB PO SCH (10:00)
[2019-10-22] MEDS: Gabapentin 300 MG CAP PO SCH (10:00)
[2019-10-22] MEDS: Cipro 250 MG TAB PO SCH (10:00)
[2019-10-22] MEDS: Ferrous Sulfate 325 MG TAB PO SCH (10:00)
[2019-10-22] MEDS: Acetaminophen 500 MG TAB PO SCH (10:00)
[2019-10-22] MEDS: Polyethylene Glycol 3350 17 GM Packet PO SCH (11:47)
[2019-10-22] MEDS: Sodium Chloride 0.9% 1,000 ML IV SCH (11:47)
[2019-10-22] MEDS: Propranolol 10 MG TAB PO SCH (11:48)
[2019-10-22 15:56] VITALS: BP 114/70; TEMP 98.9
== END 2019-10-22 16:53 | DRG 481 ==
LOC: ERS 00:42 → SURG B 02:21 → T4-A 10-22 14:29 → SURG B 10-22 14:29
PROVIDERS: ADMIT Surgery; ATTEND Surgery
PROC: 0QS636Z Reposition Right Upper Femur with Intramedullary Internal Fixation Device, Percutaneous Approach (ICD-10-PCS; principal; 2019-10-18)
DX: S72.141A Displaced intertrochanteric fracture of right femur, initial encounter for closed fracture (principal); N17.9 Acute kidney failure, unspecified; N39.0 Urinary tract infection, site not specified; E87.1 Hypo-osmolality and hyponatremia; K56.7 Ileus, unspecified; G47.00 Insomnia, unspecified; W18.30XA Fall on same level, unspecified, initial encounter; E03.9 Hypothyroidism, unspecified; F17.210 Nicotine dependence, cigarettes, uncomplicated; N18.3 Chronic kidney disease, stage 3 (moderate); I12.9 Hypertensive chronic kidney disease with stage 1 through stage 4 chronic kidney disease, or unspecified chronic kidney disease; J44.9 Chronic obstructive pulmonary disease, unspecified; S40.811A Abrasion of right upper arm, initial encounter; Z88.8 Allergy status to other drugs, medicaments and biological substances; Z85.038 Personal history of other malignant neoplasm of large intestine; Z79.899 Other long term (current) drug therapy; Z88.5 Allergy status to narcotic agent; Z88.2 Allergy status to sulfonamides
CPT/HCPCS: 36415; 36416; 71045; 72170; 76000; 80048; 80053; 80307; 81001; 82533; 83735; 84100; 84443; 85025; 85610; 85730; 87086; 96374; 96376; C1713; C9113; J0690; J1650; J1885; J2001; J2270; J2405; J2550; J2704; J2765; J3010; J3475; J7050; Q0162

== ENCOUNTER 2020-08-16 06:33 | Outpatient (CLI) | payer MEDICARE, OTHER ==
[2020-08-17 14:44] LABS: SARS-CoV-2 MS2 Positive; SARS-CoV-2 N Gene Negative; SARS-CoV-2 S Gene Negative; SARS-CoV-2 by NAA Not Detected (NotDetected); SARS-CoV-2 orf1ab Negative
== END 2020-08-16 06:34 | disposition home or self-care (01) ==
LOC: LABBT 06:33
PROVIDERS: ATTEND Internal Medicine
DX: C18.2 Malignant neoplasm of ascending colon (principal); K70.31 Alcoholic cirrhosis of liver with ascites; I85.10 Secondary esophageal varices without bleeding; K59.09 Other constipation; R93.3 Abnormal findings on diagnostic imaging of other parts of digestive tract; Z20.828 Contact with and (suspected) exposure to other viral communicable diseases
CPT/HCPCS: 87635; U0003

== ENCOUNTER 2020-08-21 08:25 | Day surgery (SDC) | payer MEDICARE, OTHER ==
[2020-08-18 16:27] VITALS: BMI 33.2
[2020-08-21] MEDS ORDERED: Ondansetron PF 4 MG/2 ML Vial ONE (10:09)
--- NOTE | 2020-08-21 11:39 | OP ---
DATE OF PROCEDURE: 08/21/2020 PROCEDURES PERFORMED: Colonoscopy with polypectomy. INDICATIONS FOR PROCEDURE: Personal history of colonic adenocarcinoma of the hepatic flexure status post surgical resection, surveillance colonoscopy in the patient with colon cancer. DESCRIPTION OF PROCEDURE: After the risks and benefits of the procedure were explained to the patient including risks of bleeding, infection, perforation, reactions to anesthesia, aspiration and/or pain, informed consent was obtained. The patient was then taken to the endoscopy suite, where she was maneuvered into the left lateral decubitus position, followed by introduction of deep sedation via propofol and anesthesia support. Once adequate sedation was achieved, a digital rectal examination was performed followed by introduction of the standard colonoscope, which was then advanced to the surgical anastomosis without difficulty. The quality of the prep was good with adequate visualization achieved. The patient tolerated the procedure well with no immediate perioperative complications. On conclusion of the procedure, all equipment was removed from the patient and she was transferred to Day Stay in satisfactory condition. FINDINGS: Digital rectal exam: Large nonbleeding external hemorrhoids were seen on external examination in addition to perianal skin tags. Colon findings: An end-to-side ileocolonic anastomosis was encountered at approximately 85 to 90 cm past the anal verge with the anastomosis site appearing well with healthy normal-appearing mucosa. It did exhibit some mild friability with manipulation with the scope, but otherwise did not exhibit any nodularity or residual colonic cancers. Intubation of the terminal ileum yielded normal mucosa within the terminal ileum. Normal-appearing mucosa was then seen within the transverse colon. Three polyps measuring 4 to 6 mm in size were seen in the descending colon and completely removed with snare cautery polypectomy, they were retrieved and placed in a specimen jar for further evaluation. Normal-appearing mucosa was then seen within the sigmoid colon. Four additional polyps were seen in the rectum measuring to 6 mm in size and completely removed with snare cautery polypectomy; however, only three were able to be retrieved, given that one of these polyps was extensively cauterized. They were placed in a specimen jar for further evaluation. Small to medium-sized nonbleeding internal hemorrhoids were seen on rectal retroflexion. IMPRESSION: 1. Three 4 to 6 mm descending colon polyp status post snare cautery polypectomy. 2. Four to 6 mm rectal polyps status post snare cautery polypectomy, but only three retrieved due to extensive cautery of the fourth polyp. 3. Small to medium size nonbleeding internal hemorrhoids. 4. Large external hemorrhoids. 5. Perianal skin tags. 6. Healthy-appearing surgical anastomosis within the right colon indicative of prior right hemicolectomy. RECOMMENDATIONS: 1. Would follow up on the polypectomy results with repeat colonoscopy interval depending on pathology report. 2. If displaying adenomatous tissue, would recommend a repeat colonoscopy in 1 to 3 years. 3. Continue with higher fiber diet given the presence of internal and external hemorrhoids. 4. Would recommend use of Preparation-H maximum strength for the external hemorrhoids, if possible flares or bleeding. 5. Followup in the [facility] as scheduled from the previous visit (in six months). Job ID: [id number]
[2020-08-21] MEDS ORDERED: PROPOFOL 200 MG/20 ML VIAL ONE (12:07)
== END 2020-08-21 11:25 | disposition home or self-care (01) ==
LOC: SDC 08:25
PROVIDERS: ATTEND Internal Medicine
PROC: 0DBM8ZX Excision of Descending Colon, Via Natural or Artificial Opening Endoscopic, Diagnostic (ICD-10-PCS; principal; 2020-08-21)
PROC: 0DBP8ZX Excision of Rectum, Via Natural or Artificial Opening Endoscopic, Diagnostic (ICD-10-PCS; 2020-08-21)
DX: Z08 Encounter for follow-up examination after completed treatment for malignant neoplasm (principal); K63.5 Polyp of colon; K62.1 Rectal polyp; K64.8 Other hemorrhoids; K64.4 Residual hemorrhoidal skin tags; F17.210 Nicotine dependence, cigarettes, uncomplicated; E07.9 Disorder of thyroid, unspecified; R73.03 Prediabetes; K70.30 Alcoholic cirrhosis of liver without ascites; K59.09 Other constipation; G47.00 Insomnia, unspecified; F10.11 Alcohol abuse, in remission; Z85.038 Personal history of other malignant neoplasm of large intestine; Z79.899 Other long term (current) drug therapy; Z88.2 Allergy status to sulfonamides; Z88.5 Allergy status to narcotic agent; Z90.49 Acquired absence of other specified parts of digestive tract
CPT/HCPCS: 88305; J2405; J2704

== ENCOUNTER 2022-02-25 16:07 | Outpatient (CLI) | payer MEDICARE, OTHER | END 2022-02-25 16:08 | disposition home or self-care (01) | LOC: BICRAD 16:07 | PROVIDERS: ATTEND Specialist | DX: R05.9 Cough, unspecified (principal); J98.4 Other disorders of lung; Z72.0 Tobacco use | CPT/HCPCS: 71046 ==